=== PATIENT | female | born 1965 | race Asian ===

== ENCOUNTER 2020-12-25 09:56 | Outpatient (REF) | payer BC, SELFPAY ==
--- NOTE | ~2020-12-25 | XR_ITS ---
EXAMINATION: XR knee RT 2V, XR knee LT 2V CLINICAL INFORMATION: Reason for Exam Z00.00 - Encounter for general adult medical examination ... COMPARISON: None available at the time of this dictation. TECHNIQUE: frontal, lateral, tunnel and patella sunrise views FINDINGS: BONES: No fracture or dislocation is present. JOINTS: Joint spaces are preserved. No joint effusion. SOFT TISSUE: Normal XR/XR knee RT 2V IMPRESSION: Normal x-ray of the knees.
--- NOTE | ~2020-12-25 | XR_ITS ---
EXAMINATION: XR knee RT 2V, XR knee LT 2V CLINICAL INFORMATION: Reason for Exam Z00.00 - Encounter for general adult medical examination ... COMPARISON: None available at the time of this dictation. TECHNIQUE: frontal, lateral, tunnel and patella sunrise views FINDINGS: BONES: No fracture or dislocation is present. JOINTS: Joint spaces are preserved. No joint effusion. SOFT TISSUE: Normal XR/XR knee LT 2V IMPRESSION: Normal x-ray of the knees.
[2020-12-25 11:17] LABS: MANUAL DIFF FLAG NO
[2020-12-25 11:28] LABS: Basophils Percent Auto 0.3 % (0-2); Eosinophils Absolute Auto 0.2 X10*3/uL (0.0-0.4); Eosinophils Percent Auto 3.3 % (0-4); Hematocrit 39.2 % (37-47); Imm Gran Abs Auto 0.02 X10*3/uL (0.00-0.03); Imm Gran Pct Auto 0.3 % (0.0-0.4); Mean Corpuscular HGB Conc 33.2 g/dl (31.0-35.0); Mean Corpuscular Volume 93.6 fL (80-98); Mean Platelet Volume 11.4 fL (9.4-12.3); Monocytes Absolute Auto 0.5 X10*3/uL (0.1-1.2); Monocytes Percent Auto 7.3 % (2-11); Neutrophils Absolute Auto 4.1 X10*3/uL (2.0-8.3); Neutrophils Percent Auto 59.8 % (45-73); Platelet Count 162 X10*3/uL (160-400); Red Blood Count 4.19 X10*6/uL (4.20-5.50); Red Cell Distribution Width 12.2 % (11.0-16.0); White Blood Count 6.9 X10*3/uL (4.8-10.8)
[2020-12-25 11:47] LABS: Alanine Aminotransferase 20 U/L (0-31); Albumin Level 4.1 g/dL (3.5-5.0); Alkaline Phosphatase 69 U/L (39-117); Anion Gap 15 (12-20); Aspartate Amino Transferase 20 U/L (5-31); Bilirubin Total 0.8 mg/dL (0.0-1.0); Blood Urea Nitrogen 16 mg/dL (9-16); Calcium 9.2 mg/dL (8.4-10.2); Carbon Dioxide 25 mmol/L (22-29); Chloride 106 mmol/L (96-108); Cholesterol 219 mg/dL; Estimated Glomerular Filt Rate > 60; Glucose Random 88 mg/dL (60-115); HDL Cholesterol 49 mg/dL; LDL Cholesterol Calculated 124 mg/dl; Magnesium 2.4 mg/dL (1.6-2.6); Potassium 4.1 mmol/L (3.3-5.1); Sodium 142 mmol/L (135-145); Total Protein 7.3 g/dL (6.5-8.0); Triglycerides 234 mg/dL
[2020-12-25 12:09] LABS: Free T4 (Free Thyroxine) 0.86 ng/dL (0.71-1.85); Thyroid Stimulating Hormone 2.64 uIU/mL (0.32-4.0); Vitamin D 25-OH Total 24.4 ng/mL (>30)
[2020-12-27 08:25] LABS: HBc Num1 10.11 S/CO (0.00-0.79); HBsAGNum1 0.18 S/CO (0.00-0.99); Hepatitis B Surface Antigen Negative (Negative); ~HepC Num1 0.05 S/CO (0.00-0.79); ~Hepatitis C Antibody Nonreactive (Nonreactive)
[2020-12-27 08:31] LABS: ~Hepatitis B Surface Antibody REACTIVE (Nonreactive)
[2020-12-27 09:12] LABS: Folate 17.7 ng/mL (> or = 4.0); Vitamin B12 781 pg/mL (200-900)
[2020-12-27 10:06] LABS: HBc Num3 10.34 S/CO; Hepatitis B Core Antibody Reactive (Nonreactive)
== END 2020-12-25 09:57 | disposition home or self-care (01) ==
LOC: HO.XRAY 09:56
PROVIDERS: PCP Internal Medicine; Visit Provider Internal Medicine
DX: Z00.00 Encounter for general adult medical examination without abnormal findings (principal); M25.561 Pain in right knee; M25.562 Pain in left knee; R94.5 Abnormal results of liver function studies; E78.00 Pure hypercholesterolemia, unspecified
CPT/HCPCS: 36415; 73560; 80053; 80061; 82306; 82607; 82746; 83735; 84100; 84439; 84443; 85025; 86704; 86706; 86803; 87340

== ENCOUNTER 2021-06-08 13:22 | Outpatient (REF) | payer BC, SELFPAY | END 2021-06-08 13:23 | disposition home or self-care (01) | LOC: HO.LAB 13:22 | PROVIDERS: Visit Provider Internal Medicine | DX: Z20.822 Contact with and (suspected) exposure to COVID-19 (principal) | CPT/HCPCS: C9803; U0003; U0005 ==

== ENCOUNTER 2021-06-13 15:45 | Outpatient (REF) | payer BC, SELFPAY | END 2021-06-13 15:46 | disposition home or self-care (01) | LOC: HO.LAB 15:45 | PROVIDERS: Visit Provider Internal Medicine | DX: Z20.822 Contact with and (suspected) exposure to COVID-19 (principal) | CPT/HCPCS: C9803; U0003; U0005 ==

== ENCOUNTER 2022-01-14 09:53 | Outpatient (REF) | payer BC, SELFPAY ==
[2022-01-14 10:26] LABS: Basophils Percent Auto 0.2 % (0-2); Eosinophils Absolute Auto 0.3 X10*3/uL (0.0-0.4); Eosinophils Percent Auto 4.1 % (0-4); Hematocrit 37.8 % (37.0-47.0); Hemoglobin 12.5 g/dl (12.0-16.0); Imm Gran Abs Auto 0.02 X10*3/uL (0.00-0.03); Imm Gran Pct Auto 0.3 % (0.0-0.4); Lymphocytes Percent Auto 30.6 % (20-40); MANUAL DIFF FLAG NO; Mean Corpuscular HGB Conc 33.1 g/dl (31.0-35.0); Mean Corpuscular Hemoglobin 30.8 pg (27.0-33.0); Mean Corpuscular Volume 93.1 fL (80.0-98.0); Monocytes Absolute Auto 0.5 X10*3/uL (0.1-1.2); Monocytes Percent Auto 7.7 % (2-11); Neutrophils Absolute Auto 3.8 x10*3/uL (2.0-8.3); Neutrophils Percent Auto 57.1 % (45-73); Platelet Count 154 X10*3/uL (160-400); Red Blood Count 4.06 X10*6/uL (4.20-5.50); Red Cell Distribution Width 12.6 % (11.0-16.0); White Blood Count 6.6 X10*3/uL (4.8-10.8)
[2022-01-14 11:16] LABS: Alanine Aminotransferase 21 U/L (0-31); Albumin Level 4.3 g/dL (3.5-5.0); Alkaline Phosphatase 71 U/L (39-117); Anion Gap 12 (12-20); Aspartate Amino Transferase 19 U/L (5-31); Bilirubin Total 0.5 mg/dL (0.0-1.0); Blood Urea Nitrogen 18 mg/dL (9-16); Calcium 8.9 mg/dL (8.4-10.2); Carbon Dioxide 25 mmol/L (22-29); Chloride 108 mmol/L (96-108); Cholesterol 197 mg/dL; Estimated Glomerular Filt Rate > 60; Glucose Random 98 mg/dL (60-115); HDL Cholesterol 43 mg/dL; LDL Cholesterol Calculated 110 mg/dl; Potassium 4.3 mmol/L (3.3-5.1); Sodium 141 mmol/L (135-145); Total Protein 7.4 g/dL (6.5-8.0); Triglycerides 221 mg/dL
[2022-01-14 11:37] LABS: Free T4 (Free Thyroxine) 0.83 ng/dL (0.71-1.85); Thyroid Stimulating Hormone 2.06 uIU/mL (0.32-4.0); Vitamin D 25-OH Total 27.1 ng/mL (>30)
[2022-01-16 09:06] LABS: Folate 18.4 ng/mL (> or = 4.0); Vitamin B12 1155 pg/mL (200-900)
== END 2022-01-14 09:54 | disposition home or self-care (01) ==
LOC: HO.LAB 09:53
PROVIDERS: PCP Internal Medicine; Visit Provider Internal Medicine
DX: E78.00 Pure hypercholesterolemia, unspecified (principal)
CPT/HCPCS: 36415; 80053; 80061; 82306; 82607; 82746; 84439; 84443; 85025

== ENCOUNTER 2023-01-06 09:22 | Outpatient (REF) | payer BC, SELFPAY ==
[2023-01-06 09:31] LABS: MANUAL DIFF FLAG NO
[2023-01-06 09:39] LABS: Basophils Percent Auto 0.4 % (0-2); Eosinophils Absolute Auto 0.3 X10*3/uL (0.0-0.4); Eosinophils Percent Auto 4.1 % (0-4); Hematocrit 38.5 % (37.0-47.0); Hemoglobin 12.8 g/dl (12.0-16.0); Imm Gran Abs Auto 0.03 X10*3/uL (0.00-0.03); Imm Gran Pct Auto 0.4 % (0.0-0.4); Lymphocytes Absolute Auto 2.3 X10*3/uL (1.2-4.9); Lymphocytes Percent Auto 33.3 % (20-40); Mean Corpuscular HGB Conc 33.2 g/dl (31.0-35.0); Mean Corpuscular Hemoglobin 30.4 pg (27.0-33.0); Mean Corpuscular Volume 91.4 fL (80.0-98.0); Mean Platelet Volume 10.2 fL (9.4-12.3); Monocytes Absolute Auto 0.5 X10*3/uL (0.1-1.2); Monocytes Percent Auto 7.9 % (2-11); Neutrophils Absolute Auto 3.7 x10*3/uL (2.0-8.3); Neutrophils Percent Auto 53.9 % (45-73); Platelet Count 161 X10*3/uL (160-400); Red Blood Count 4.21 X10*6/uL (4.20-5.50); Red Cell Distribution Width 12.4 % (11.0-16.0); White Blood Count 6.9 X10*3/uL (4.8-10.8)
[2023-01-06 10:18] LABS: Alanine Aminotransferase 15 U/L (0-31); Albumin Level 4.1 g/dL (3.5-5.0); Alkaline Phosphatase 57 U/L (39-117); Anion Gap 12 (12-20); Aspartate Amino Transferase 19 U/L (5-31); Bilirubin Total 0.6 mg/dL (0.0-1.0); Blood Urea Nitrogen 19 mg/dL (9-16); Calcium 9.6 mg/dL (8.4-10.2); Carbon Dioxide 26 mmol/L (22-29); Chloride 106 mmol/L (96-108); Cholesterol 232 mg/dL; Estimated Glomerular Filt Rate > 60; Glucose Random 101 mg/dL (60-115); HDL Cholesterol 45 mg/dL; LDL Cholesterol Calculated 151 mg/dl; Potassium 4.3 mmol/L (3.3-5.1); Sodium 140 mmol/L (135-145); Total Protein 7.6 g/dL (6.5-8.0); Triglycerides 183 mg/dL
[2023-01-06 10:36] LABS: Free T4 (Free Thyroxine) 0.87 ng/dL (0.71-1.85); Thyroid Stimulating Hormone 2.69 uIU/mL (0.32-4.0); Vitamin D 25-OH Total 44.8 ng/mL (>30)
[2023-01-06 10:52] LABS: Folate 17.4 ng/mL (> or = 4.0); Vitamin B12 1647 pg/mL (200-900)
== END 2023-01-06 09:23 | disposition home or self-care (01) ==
LOC: HO.LAB 09:22
PROVIDERS: PCP Internal Medicine; Visit Provider Internal Medicine
DX: Z00.00 Encounter for general adult medical examination without abnormal findings (principal); E78.00 Pure hypercholesterolemia, unspecified; E55.9 Vitamin D deficiency, unspecified
CPT/HCPCS: 36415; 80053; 80061; 82306; 82607; 82746; 84439; 84443; 85025

== ENCOUNTER 2024-01-01 15:46 | Outpatient (AMB) | payer BC, SELFPAY ==
[2024-01-01 15:49] VITALS: BP 118/78; PULSE 78; O2SAT 98; BMI 25.1
--- NOTE | 2024-01-01 15:49 | MHC.PC.OV ---
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 Accompanied by: Self / Same As Patient Allergies penicillin V Allergy (Unknown, Verified 01/01/24 15:55) anaphylaxis Medication List - Last Reconciled 01/01/24 by Kenneth Jaeger MD cholecalciferol (vitamin D3) 25 mcg PO DAILY clotrimazole 1% 1 appl topical BID 4 weeks multivitamin (Daily Multi-Vitamin tablet) 1 tab PO DAILY Tobacco use date assessed: 01/01/24 Dental Screening Dental Screen Date: 01/01/24 Did you have a dental visit in the last 12 months?: Yes Did you have a dental problem in the last 6 months where you did not have access to dental care?: No Was dental information given to patient?: Patient has dentist HPI pe HPI Details 58-year-old female with a 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 Patient's colonoscopy was done in 2015 mammogram and MRI of the breast 12/09/2022.. 08/2023 had dizzy andwent to urgent center BP high went twice 2nd time- urgent - had vaginal bleeding- went to costume specialist was told negative- dizzy again- ear fluid was told?- but no meds [facility] Medical History (Updated 01/01/24 @ 16:17 by Kenneth Jaeger MD) Overweight (BMI 25.0-29.9) Food allergy Vitamin D deficiency Allergic rhinitis Surgical History History of section Family History (Updated 01/01/24 @ 16:27 by Kenneth Jaeger MD) Father No problems noted. Mother Atrial fibrillation Brother Hypertension Daughter Allergies Paternal Uncle Liver cancer Social History Housing: House Alcohol intake: never Patient Tobacco Use Status: Never used Tobacco e-Cigarette/Vaping Use: Never Used Second Hand Smoke Exposure: No service: No Current occupational status: employed Current occupational exposures/hazards: No Cognitive needs: No Hearing needs: No Vision needs: No Questionnaire PHQ-9 Over the last 2 weeks, how often have you been bothered by any of the following problems? 1. Little interest or pleasure in doing things: not at all 2. Feeling down, depressed, or hopeless: not at all 3. Trouble falling or staying asleep, or sleeping too much: not at all 4. Feeling tired or having little energy: not at all 5. Poor appetite or overeating: not at all 6. Feeling bad about yourself - or that you are a failure or have let yourself or your family down: not at all 7. Trouble concentrating on things, such as reading the newspaper or watching television: not at all 8. Moving or speaking so slowly that other people could have noticed. Or the opposite - being so fidgety or restless that you have been moving around a lot more than usual: not at all 9. Thoughts that you would be better off or of hurting yourself in some way: not at all Total score: 0 Depression Screening Interpretation: Negative Depression Screening Done: Yes Source: Developed by Drs. Paco Krishna, Ely Rockwell, Darrel Ruiz and colleagues, with an educational micky from [employer]. Thrive Questionnaire Date Thrive assessed: 01/01/24 I am a: Patient What is your living situation today?: I have a steady place to live Within the past 12 months, did the food you bought not last and you didn't have the money to get more?: Never true Within the past 12 months, did you worry whether your food would run out before you got money to buy more?: Never true Do you have trouble paying for medicines?: No Do you have trouble getting transportation to medical appointments?: No Do you have trouble paying your heating and electricity bill?: No Do you have trouble taking care of your child, family member or friend?: No Do you have trouble with day-to-day activities such as bathing, preparing meals, shopping, managing finances, etc.?: No Are you currently unemployed and looking for a job?: No Are you interested in more education?: No Currently or been in a relationship where the following occur: no concerns reported THRIVE Score: 0 AUDIT C Alcohol Use Questionnaire (AUDIT-C) 1. How often do you have a drink containing alcohol?: Never Total Score: 0 PATI-7 AMB Questionnaire PATI-7 Date PATI - 7 assessed: 01/01/24 Feeling nervous, anxious, or on edge: 0 = Not at all Not being able to stop or control worryin = Not at all Worrying too much about different things: 0 = Not at all Trouble relaxin = Not at all Being so restless that it is hard to sit still: 0 = Not at all Becoming easily annoyed or irritable: 0 = Not at all Feeling afraid as if something awful might happen: 0 = Not at all Total PATI-7 score (0-4 normal; 5-9 mild; 10-14 moderate; 15-21 severe): 0 Source: Developed by Drs. Paco Krishna, Ely Rockwell, Darrel Ruiz and colleagues, with an educational micky from [employer]. Review of Systems Const Denies poor appetite and Denies weakness Eyes Denies no additional complaints ENT Reports Normal hearing present, Denies dizziness, Denies nasal congestion, Denies tinnitus and Denies sore throat Card Denies chest pain, Denies syncope, Denies rapid heart rate and Denies dyspnea Resp Denies cough and Denies dyspnea GI Denies change in stool character, Reports constipation, Denies diarrhea, Denies nausea and Denies vomiting Denies urinary frequency, Denies difficulty voiding and Denies dysuria Neuro Reports Normal hearing present, Denies confusion, Denies dizziness, Denies syncope and Denies weakness Psych Denies confusion Physical exam (Primary Care) Vital Signs: Last Vital Signs Pulse 78 01/01/24 15:49 BP 118/78 01/01/24 15:49 Pulse Ox 98 01/01/24 15:49 Oxygen Delivery Method Room Air 01/01/24 15:49 BMI result Body Mass Index 25.1 Tobacco/Smoking Status: Tobacco use Status Tobacco use date assessed 01/01/24 01/01/24 15:59 Patient Tobacco Use Status Never used Tobacco 01/01/24 15:59 e-Cigarette/Vaping Use Never Used 01/01/24 15:59 PHQ-9: PHQ-9 Score PHQ-9: Total score 0 01/01/24 15:59 Depression Screening Interpretation: Negative Thrive Assessment: Date of Thrive Assessment Date Thrive assessed 01/01/24 01/01/24 15:59 Currently or been in a relationship where the following occur: no concerns reported Const General: No confusion Orientation/consciousness: No confusion HENMT Head: Yes normocephalic Ears: external ears normal and TM's normal bilaterally Face and sinus: Yes normal facial exam Mouth: moist mucous membranes Throat: Yes tonsils normal Eyes Conjunctivae: conjunctivae normal Pupils: Equal, round and reactive pupils present and Pupil accommodation reflex normal Direct Ophthalmoscopy: normal light reflex Neck Neck: No lymphadenopathy Thyroid: Thyroid normal Chest Chest palpation & inspection: normal inspection of the chest Resp Effort & Inspection: normal respiratory effort and no audible wheezes Auscultation: clear to auscultation bilaterally, no crackles, no wheezes and lung sounds not diminished Cardio Rate: regular rate Rhythm: regular rhythm Peripheral pulses: radial pulses present and dorsalis pedis present GI Palpation (GI): no masses Auscultation: normal bowel sounds and normoactive bowel sounds Rectal Exam - Female: deferred Skin General skin exam: no rashes or lesions noted Rashes: no rashes Neuro General: No confusion Cranial nerves: Yes Equal, round and reactive pupils present and Yes Normal hearing present Cognition (Neuro): normal cognition Gait exam (Neuro): Normal gait present Motor exam (neuro): 5/5 motor strength present throughout Deep tendon reflexes (DTR's): Right brachioradialis reflex intensity grade: 2+, Left brachioradialis reflex intensity grade: 2+, Right patellar reflex intensity grade: 2+ and Left patellar reflex intensity grade: 2+ Extrem General: No edema Assessment and Plan Assessment & Plan (1) Annual physical exam: Code(s): Z00.00 - Encounter for general adult medical examination without abnormal findings Plan: Patient is advised to eat healthy, keep well hydrated, keep active and have adequate sleep. (2) Atypical ductal hyperplasia of right breast: Comment: 2019 Code(s): N60.91 - Unspecified benign mammary dysplasia of right breast Plan: Patient continues to follow-up with mammograms and MRI (3) Hypercholesterolemia: Code(s): E78.00 - Pure hypercholesterolemia, unspecified Plan: Avoid fried foods, chicken skin, eggs, butter margarine, pastries and meat. Be it pork or beef they have a lot of cholesterol LDL goal of less than 130 and triglyceride of less than 150 (4) Impaired glucose tolerance: Code(s): R73.02 - Impaired glucose tolerance (oral) Plan: Decrease the amount of carbohydrate intake, pasta, bread, rice and potatoes are all sugar and that is aside from all the sweet stuff, remember that fruits are good but they are Sweet also. Orders: Orders Free T4 (Free Thyroxine) Today Z00.00 - Encounter for general adult medical examination without abnormal findings Thyroid Stimulating Hormone Today Z00.00 - Encounter for general adult medical examination without abnormal findings Lipid Panel Today Z00.00 - Encounter for general adult medical examination without abnormal findings Hemoglobin A1c Today Z00.00 - Encounter for general adult medical examination without abnormal findings Complete Blood Count Auto Diff Today Z00.00 - Encounter for general adult medical examination without abnormal findings Comprehensive Met. Panel Today Z00.00 - Encounter for general adult medical examination without abnormal findings Vitamin B12 and Folate Today Z00.00 - Encounter for general adult medical examination without abnormal findings Vitamin D 25-OH Total Today Z00.00 - Encounter for general adult medical examination without abnormal findings Coding Level of Care Code Est Pt Prev Care 40-64y(10433) Diagnoses Annual physical exam Z00.00 Atypical ductal hyperplasia of right breast N60.91 Hypercholesterolemia E78.00 Impaired glucose tolerance R73.02
== END 2024-01-01 16:51 | disposition home or self-care (01) ==
PROVIDERS: PCP Internal Medicine; Visit Provider Internal Medicine
DX: Z00.00 Encounter for general adult medical examination without abnormal findings (principal); N60.91 Unspecified benign mammary dysplasia of right breast; E78.00 Pure hypercholesterolemia, unspecified; R73.02 Impaired glucose tolerance (oral)
CPT/HCPCS: 99396

== ENCOUNTER 2024-04-11 10:56 | Outpatient (REF) | payer BC, SELFPAY ==
[2024-04-11 11:11] LABS: MANUAL DIFF FLAG NO
[2024-04-11 11:42] LABS: Basophils Percent Auto 0.3 % (0-2); Eosinophils Absolute Auto 0.2 X10*3/uL (0.0-0.4); Hematocrit 39.1 % (37.0-47.0); Hemoglobin 13.1 g/dl (12.0-16.0); Imm Gran Abs Auto 0.02 X10*3/uL (0.00-0.03); Imm Gran Pct Auto 0.3 % (0.0-0.4); Lymphocytes Absolute Auto 1.6 X10*3/uL (1.2-4.9); Lymphocytes Percent Auto 26.5 % (20-40); Mean Corpuscular HGB Conc 33.5 g/dl (31.0-35.0); Mean Corpuscular Hemoglobin 31.3 pg (27.0-33.0); Mean Corpuscular Volume 93.3 fL (80.0-98.0); Mean Platelet Volume 11.1 fL (9.4-12.3); Monocytes Absolute Auto 0.5 X10*3/uL (0.1-1.2); Monocytes Percent Auto 8.4 % (2-11); Neutrophils Absolute Auto 3.7 x10*3/uL (2.0-8.3); Neutrophils Percent Auto 61.5 % (45-73); Platelet Count 163 X10*3/uL (160-400); Red Blood Count 4.19 X10*6/uL (4.20-5.50); Red Cell Distribution Width 12.6 % (11.0-16.0)
[2024-04-11 12:14] LABS: Estimated Average Glucose 114 mg/dL; Hemoglobin A1c % 5.6 % (<6.0)
[2024-04-11 12:36] LABS: Alanine Aminotransferase 24 U/L (0-31); Albumin Level 4.2 g/dL (3.5-5.0); Alkaline Phosphatase 64 U/L (39-117); Anion Gap 10 (12-20); Aspartate Amino Transferase 21 U/L (5-31); Bilirubin Total 0.7 mg/dL (0.0-1.0); Blood Urea Nitrogen 19 mg/dL (9-16); Calcium 9.5 mg/dL (8.4-10.2); Carbon Dioxide 29 mmol/L (22-29); Chloride 107 mmol/L (96-108); Cholesterol 204 mg/dL (<200); Estimated Glomerular Filt Rate > 60; Glucose Random 97 mg/dL (60-115); HDL Cholesterol 43 mg/dL (>40); LDL Cholesterol Calculated 124 mg/dL (<100); Potassium 3.9 mmol/L (3.3-5.1); Sodium 142 mmol/L (135-145); Total Protein 7.5 g/dL (6.5-8.0); Triglycerides 185 mg/dL (<150)
[2024-04-11 12:44] LABS: Free T4 (Free Thyroxine) 0.89 ng/dL (0.71-1.85); Thyroid Stimulating Hormone 2.13 uIU/mL (0.32-4.0); Vitamin D 25-OH Total 43.2 ng/mL (>30)
[2024-04-11 12:53] LABS: Vitamin B12 1137 pg/mL (200-900)
== END 2024-04-11 10:57 | disposition home or self-care (01) ==
LOC: HO.LAB 10:56
PROVIDERS: PCP Internal Medicine; Visit Provider Internal Medicine
DX: Z00.00 Encounter for general adult medical examination without abnormal findings (principal); Z20.2 Contact with and (suspected) exposure to infections with a predominantly sexual mode of transmission
CPT/HCPCS: 36415; 80053; 80061; 82306; 82607; 82746; 83036; 84439; 84443; 85025

== ENCOUNTER 2024-07-18 14:12 | Outpatient (AMB) | payer BC, SELFPAY ==
--- NOTE | 2024-07-18 14:17 | A.OFFPC_ITS ---
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 The patient's history includes an epidermal inclusion cyst, initially noticed last year, for which she was previously referred to a office clerk routine. She did not attend the consult but reports that the cyst has recently increased in size, exhibited pain, and appears different. The use of a warm pad has been partially effective in symptom management. The patient has a history of similar cysts, one previously treated by dermatological surgery. A concern is expressed regarding scarring from such procedures; she is considering a referral to a general surgeon or plastic surgeon for evaluation. The patient has a history of hyperlipidemia, which was previously uncontrolled with a total cholesterol of 232, now improved to 204 following unspecified interventions. LDL cholesterol has decreased from 151 to 124, although triglycerides remain elevated at 185. The patient's previous blood sugar level was 101, with current fasting blood glucose improved to 97, and hemoglobin A1c noted at 5.6%, reflecting good glycemic control. She reported ringing in her ears for a prolonged period, suggestive of presbycusis. No noticeable decline in daily function was associated with tinnitus. Hypertension is controlled, but the patient declined further evaluation for dysphagia despite occasional symptoms. She remains unvaccinated against influenza due to self-isolation by working from home but is considering vaccination with upcoming volunteer activities. An interest in a shingles vaccine was noted for future preventative care. [facility] Medical History (Updated 07/18/24 @ 15:01 by Kenneth Jaeger MD) Overweight (BMI 25.0-29.9) Food allergy Vitamin D deficiency Allergic rhinitis Surgical History History of section Family History Father No problems noted. Mother Atrial fibrillation Brother Hypertension Daughter Allergies Paternal Uncle Liver cancer Social History Housing: House Alcohol intake: never Patient Tobacco Use Status: Never used Tobacco e-Cigarette/Vaping Use: Never Used Second Hand Smoke Exposure: No service: No Current occupational status: employed Current occupational exposures/hazards: No Cognitive needs: No Hearing needs: No Vision needs: No Questionnaire PHQ-9 Over the last 2 weeks, how often have you been bothered by any of the following problems? 1. Little interest or pleasure in doing things: not at all 2. Feeling down, depressed, or hopeless: not at all 3. Trouble falling or staying asleep, or sleeping too much: not at all 4. Feeling tired or having little energy: not at all 5. Poor appetite or overeating: not at all 6. Feeling bad about yourself - or that you are a failure or have let yourself or your family down: not at all 7. Trouble concentrating on things, such as reading the newspaper or watching television: not at all 8. Moving or speaking so slowly that other people could have noticed. Or the opposite - being so fidgety or restless that you have been moving around a lot more than usual: not at all 9. Thoughts that you would be better off or of hurting yourself in some way: not at all Total score: 0 Depression Screening Interpretation: Negative Depression Screening Done: Yes 52913 - PHQ-9 Billing: Yes Source: Developed by Drs. Paco Krishna, Ely Rockwell, Darrel Ruiz and colleagues, with an educational micky from [employer]. Thrive Questionnaire Date Thrive assessed: 07/18/24 I am a: Patient What is your living situation today?: I have a steady place to live Within the past 12 months, did the food you bought not last and you didn't have the money to get more?: Never true Within the past 12 months, did you worry whether your food would run out before you got money to buy more?: Never true Do you have trouble paying for medicines?: No Do you have trouble getting transportation to medical appointments?: No Do you have trouble paying your heating and electricity bill?: No Do you have trouble taking care of your child, family member or friend?: No Do you have trouble with day-to-day activities such as bathing, preparing meals, shopping, managing finances, etc.?: No Are you currently unemployed and looking for a job?: No Are you interested in more education?: No Currently or been in a relationship where the following occur: No concerns reported THRIVE Score: 0 AUDIT C Alcohol Use Questionnaire (AUDIT-C) 1. How often do you have a drink containing alcohol?: Never 3. How often do you have six or more drinks on one occasion?: Never Total Score: 0 PATI-7 AMB Questionnaire PATI-7 Date PATI - 7 assessed: 07/18/24 Feeling nervous, anxious, or on edge: 0 = Not at all Not being able to stop or control worryin = Not at all Worrying too much about different things: 0 = Not at all Trouble relaxin = Not at all Being so restless that it is hard to sit still: 0 = Not at all Becoming easily annoyed or irritable: 0 = Not at all Feeling afraid as if something awful might happen: 0 = Not at all Total PATI-7 score (0-4 normal; 5-9 mild; 10-14 moderate; 15-21 severe): 0 Source: Developed by Drs. Paco Krishna, Ely Rockwell, Darrel Ruiz and colleagues, with an educational micky from [employer]. PATI-7 Assessment Billing PATI-7 Assessment Tool: PATI-7 Assessment 55976 Physical exam (Primary Care) Vital Signs: Last Vital Signs Pulse 69 07/18/24 14:39 BP 110/70 07/18/24 14:39 Pulse Ox 96 07/18/24 14:39 Oxygen Delivery Method Room Air 07/18/24 14:39 BMI result Body Mass Index 26.0 Tobacco/Smoking Status: Tobacco use Status Tobacco use date assessed 01/01/24 07/18/24 14:18 Patient Tobacco Use Status Never used Tobacco 07/18/24 14:18 e-Cigarette/Vaping Use Never Used 07/18/24 14:18 PHQ-9: PHQ-9 Score PHQ-9: Total score 0 07/18/24 14:18 Depression Screening Interpretation: Negative Thrive Assessment: Date of Thrive Assessment Date Thrive assessed 07/18/24 07/18/24 14:18 Currently or been in a relationship where the following occur: No concerns reported Const General: alert; No acute distress Eyes Conjunctivae: conjunctivae normal Resp Auscultation: clear to auscultation bilaterally Cardio Rate: regular rate Rhythm: regular rhythm GI Inspection: Yes normal to inspection Back/Spine/Pelvis Back/spine/pelvis image: 2 1. 1 cm epidermal inclusion cyst Extrem General: Yes normal to inspection and No edema Office Procedures Flu Questionnaire Does the patient have a severe egg allergy?: No Immunizations Fluarix Triv [id number] (PF) 45 mcg (15 mcg x 3)/0.5 mL IM syringe Performing Provider: Kenneth Jaeger MD [place] [facility] [place] [facility] Documented (not given) by: MARCOS Tompkins on 07/18/24 14:39 Reason Not Given: Patient Refused Coding Level of Care Code Est Pt Level 4 (62435) Complex EM visit Add On G2211 Diagnoses Overweight (BMI 25.0-29.9) E66.3 Atypical ductal hyperplasia of right breast N60.91 Hypercholesterolemia E78.00 Epidermal inclusion cyst L72.0 Dysphagia R13.10 Tinnitus H93.19 Peripheral vascular disease I73.9 Additional Codes PATI-7 Assessment Billing - PATI-7 Assessment Tool: PATI-7 Assessment 03923 ([id number]) PHQ-9 - 00907 - PHQ-9 Billing: Yes ([id number]) Assessment & Plan Assessment & Plan (1) Overweight (BMI 25.0-29.9): Code(s): E66.3 - Overweight Category: Medical (2) Atypical ductal hyperplasia of right breast: Comment: 2019 testing Code(s): N60.91 - Unspecified benign mammary dysplasia of right breast Category: Medical Plan: Patient goes to [place] for MRIs and mammogram (3) Hypercholesterolemia: Code(s): E78.00 - Pure hypercholesterolemia, unspecified Category: Medical Plan: Avoid fried foods, chicken skin, eggs, butter margarine, pastries and meat. Be it pork or beef they have a lot of cholesterol LDL goal of less than 130 and triglyceride of less than 150. (4) Epidermal inclusion cyst: Comment: mid back Code(s): L72.0 - Epidermal cyst Category: Medical Plan: Referral to the surgeon done (5) Dysphagia: Code(s): R13.10 - Dysphagia, unspecified Category: Medical Plan: Discussed about eating slower and cutting the food smaller and chewing properly. If continues to persist will have to do testing (6) Tinnitus: Code(s): H93.19 - Tinnitus, unspecified ear Category: Medical Plan: Discussed about hearing loss but patient is not ready to get testing. (7) Peripheral vascular disease: Code(s): I73.9 - Peripheral vascular disease, unspecified Category: Medical Plan: When sitting down elevate the legs, exercise, and support stockings Plan - Advise plastic surgery consultation for a potentially less invasive excision of the epidermal inclusion cyst with focus on minimizing scarring. - Continue monitoring lipid levels; reinforce dietary interventions to manage hyperlipidemia. Re-evaluate lipid panel in conjunction with patient's dietary adjustments. - No additional workup for tinnitus needed at this time; patient to consider audiometry should symptoms worsen. - Reinforce lifestyle measures for maintenance of normal glycemic range given satisfactory A1c levels and normal fasting glucose. - Continue monitoring hypertension, ensure compliance with current antihypertensive regimen. - Recommend appropriate adult vaccinations, including influenza and shingles vaccines, particularly if pursuing volunteer work. - Educate on dietary modifications to alleviate dysphagia symptoms, return for evaluation if symptoms persist or worsen. - Discuss benefits of hearing test if significant progression in tinnitus or associated hearing changes. - Encourage proactive management of venous insufficiency symptoms, including lifestyle modifications. - Continue considering mental health and social engagement for improved well- being. Orders: Orders 2 Influenza [id number] Immunization Today Z23 - Encounter for immunization Referrals 2 General Surgery Referral L72.0 - Epidermal cyst
[2024-07-18 14:39] VITALS: BP 110/70; PULSE 69; O2SAT 96; BMI 26.0
== END 2024-07-18 15:02 | disposition home or self-care (01) ==
PROVIDERS: PCP Internal Medicine; Visit Provider Internal Medicine
DX: I73.9 Peripheral vascular disease, unspecified (principal); E66.3 Overweight; N60.91 Unspecified benign mammary dysplasia of right breast; E78.00 Pure hypercholesterolemia, unspecified; L72.0 Epidermal cyst; R13.10 Dysphagia, unspecified

== ENCOUNTER → 2024-07-18 14:12 | Outpatient (BNVA) | payer BC, SELFPAY | PROVIDERS: PCP Internal Medicine; Visit Provider Internal Medicine | DX: E66.3 Overweight (principal); Z68.26 Body mass index [BMI] 26.0-26.9, adult; N60.91 Unspecified benign mammary dysplasia of right breast; E78.00 Pure hypercholesterolemia, unspecified; L72.0 Epidermal cyst; R13.10 Dysphagia, unspecified; H93.19 Tinnitus, unspecified ear; I73.9 Peripheral vascular disease, unspecified; Z28.21 Immunization not carried out because of patient refusal | CPT/HCPCS: 96127 ==

== ENCOUNTER 2025-01-02 16:12 | Outpatient (AMB) | payer BC, SELFPAY ==
--- OUTSIDE RECORDS SUMMARY | 2025-01-02 16:14 | XMS_ITS ---
Author Name [facility] Organization Unknown Encounters Encounter Type Encounter Reason Primary Diagnosis Location Date Ambulatory [facility] [place] 04/24/2023 Ambulatory [facility] [place] 03/23/2023 Ambulatory [facility] [place] 03/20/2023 Ambulatory [facility] [place] 02/12/2023 Ambulatory [facility] [place] 02/12/2023 Ambulatory [facility] [place] 02/12/2023 Ambulatory [facility] [place] 02/08/2023 Ambulatory [facility] [place] 01/15/2023 Ambulatory [facility] [place] 01/15/2023 Ambulatory [facility] [place] 01/15/2023 Ambulatory [facility] [place] 01/15/2023
[2025-01-02 16:30] VITALS: BP 130/80; PULSE 81; TEMP 36.3; O2SAT 96; BMI 26.5
--- NOTE | 2025-01-02 16:30 | MHC.PC.OV ---
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: No Accompanied by: Self / Same As Patient Allergies penicillin V Allergy (Unknown, Verified 01/02/25 16:32) anaphylaxis Medication List - Last Reconciled 01/02/25 by Kenneth Jaeger MD cholecalciferol (vitamin D3) 25 mcg PO DAILY Tobacco use date assessed: 01/02/25 Dental Screening Dental Screen Date: 01/02/25 Did you have a dental visit in the last 12 months?: Yes Did you have a dental problem in the last 6 months where you did not have access to dental care?: No Was dental information given to patient?: Patient has dentist HPI Annual Exam HPI Details tip of tongue numb , 1 month concern onbrain cancer but was reassurance , tinnitus, leg swelling- discussed about PVD, states occ hot flashes, joint pain back cyst is getting better [facility] Medical History (Updated 07/18/24 @ 15:01 by Kenneth Jaeger MD) Overweight (BMI 25.0-29.9) Food allergy Vitamin D deficiency Allergic rhinitis Surgical History History of section Family History Father No problems noted. Mother Atrial fibrillation Brother Hypertension Daughter Allergies Paternal Uncle Liver cancer Social History Housing: House Alcohol intake: never Patient Tobacco Use Status: Never used Tobacco e-Cigarette/Vaping Use: Never Used Second Hand Smoke Exposure: No service: No Current occupational status: employed Current occupational exposures/hazards: No Cognitive needs: No Hearing needs: No Vision needs: No Questionnaire PHQ-9 Over the last 2 weeks, how often have you been bothered by any of the following problems? 1. Little interest or pleasure in doing things: not at all 2. Feeling down, depressed, or hopeless: not at all 3. Trouble falling or staying asleep, or sleeping too much: several days 4. Feeling tired or having little energy: several days 5. Poor appetite or overeating: not at all 6. Feeling bad about yourself - or that you are a failure or have let yourself or your family down: not at all 7. Trouble concentrating on things, such as reading the newspaper or watching television: not at all 8. Moving or speaking so slowly that other people could have noticed. Or the opposite - being so fidgety or restless that you have been moving around a lot more than usual: not at all 9. Thoughts that you would be better off or of hurting yourself in some way: not at all Total score: 2 82209 - PHQ-9 Billing: Yes Source: Developed by Drs. Paco Krishna, Ely Rockwell, Darrel Ruiz and colleagues, with an educational micky from [employer]. Thrive Questionnaire Date Thrive assessed: 01/02/25 I am a: Patient What is your living situation today?: I have a steady place to live Within the past 12 months, did the food you bought not last and you didn't have the money to get more?: Never true Within the past 12 months, did you worry whether your food would run out before you got money to buy more?: Never true Do you have trouble paying for medicines?: No Do you have trouble getting transportation to medical appointments?: No Do you have trouble paying your heating and electricity bill?: No Do you have trouble taking care of your child, family member or friend?: No Do you have trouble with day-to-day activities such as bathing, preparing meals, shopping, managing finances, etc.?: No Are you currently unemployed and looking for a job?: No Are you interested in more education?: No Please select the resources that you would like help with: None Currently or been in a relationship where the following occur: No concerns reported THRIVE Score: 0 AUDIT C Alcohol Use Questionnaire (AUDIT-C) 1. How often do you have a drink containing alcohol?: Never 3. How often do you have six or more drinks on one occasion?: Never Total Score: 0 PATI-7 AMB Questionnaire PATI-7 Date PATI - 7 assessed: 01/02/25 Feeling nervous, anxious, or on edge: 0 = Not at all Not being able to stop or control worryin = Not at all Worrying too much about different things: 0 = Not at all Trouble relaxin = Not at all Being so restless that it is hard to sit still: 0 = Not at all Becoming easily annoyed or irritable: 0 = Not at all Feeling afraid as if something awful might happen: 0 = Not at all Total PATI-7 score (0-4 normal; 5-9 mild; 10-14 moderate; 15-21 severe): 0 Source: Developed by Drs. Paco Krishna, Ely Rockwell, Darrel Ruiz and colleagues, with an educational micky from [employer]. PATI-7 Assessment Billing PATI-7 Assessment Tool: PATI-7 Assessment 10661 Review of Systems Const Denies poor appetite and Denies weakness Eyes Denies no additional complaints ENT Reports Normal hearing present, Denies dizziness, Denies nasal congestion, Denies tinnitus and Denies sore throat Card Denies chest pain, Denies syncope, Denies rapid heart rate and Denies dyspnea Resp Denies cough and Denies dyspnea GI Denies change in stool character, Reports constipation, Denies diarrhea, Denies nausea and Denies vomiting Denies urinary frequency, Denies difficulty voiding and Denies dysuria Neuro Reports Normal hearing present, Denies confusion, Denies dizziness, Denies syncope and Denies weakness Psych Denies confusion Physical exam (Primary Care) Vital Signs: Last Vital Signs Temp 97.3 F 01/02/25 16:30 Pulse 81 01/02/25 16:30 BP 130/80 01/02/25 16:30 Pulse Ox 96 01/02/25 16:30 Oxygen Delivery Method Room Air 01/02/25 16:30 BMI result Body Mass Index 26.5 Tobacco/Smoking Status: Tobacco use Status Tobacco use date assessed 01/02/25 01/02/25 16:33 Patient Tobacco Use Status Never used Tobacco 01/02/25 16:33 e-Cigarette/Vaping Use Never Used 01/02/25 16:33 PHQ-9: PHQ-9 Score PHQ-9: Total score 2 01/02/25 17:22 Thrive Assessment: Date of Thrive Assessment Date Thrive assessed 01/02/25 01/02/25 16:33 Currently or been in a relationship where the following occur: No concerns reported Const General: No confusion Orientation/consciousness: No confusion HENMT Head: Yes normocephalic Ears: external ears normal and TM's normal bilaterally Face and sinus: Yes normal facial exam Mouth: moist mucous membranes Throat: Yes tonsils normal Eyes Conjunctivae: conjunctivae normal Pupils: Equal, round and reactive pupils present and Pupil accommodation reflex normal Direct Ophthalmoscopy: normal light reflex Neck Neck: No lymphadenopathy Thyroid: Thyroid normal Chest Chest palpation & inspection: normal inspection of the chest Resp Effort & Inspection: normal respiratory effort and no audible wheezes Auscultation: clear to auscultation bilaterally, no crackles, no wheezes and lung sounds not diminished Cardio Rate: regular rate Rhythm: regular rhythm Peripheral pulses: radial pulses present and dorsalis pedis present GI Palpation (GI): no masses Auscultation: normal bowel sounds and normoactive bowel sounds Rectal Exam - Female: deferred Skin General skin exam: no rashes or lesions noted Rashes: no rashes Neuro General: No confusion Cranial nerves: Yes Equal, round and reactive pupils present and Yes Normal hearing present Cognition (Neuro): normal cognition Gait exam (Neuro): Normal gait present Motor exam (neuro): 5/5 motor strength present throughout Deep tendon reflexes (DTR's): Right brachioradialis reflex intensity grade: 2+, Left brachioradialis reflex intensity grade: 2+, Right patellar reflex intensity grade: 2+ and Left patellar reflex intensity grade: 2+ Extrem General: No edema Immunizations Tenivac (PF) 5 Lf unit-2 Lf unit/0.5 mL intramuscular syringe Performing Provider: Kenneth Jaeger MD [facility] Administered by: Sara Marques CMA on 01/02/25 17:24 Dose Route Admin Location Dispensed Lot Number Expiration Date NDC Typing Bookkeeper 0.5 mL IM Left Deltoid 0.5 mL [id number] 10/20/26 01691-231-75 [employer] VIS Given Date VIS Provided VIS Publication Date 01/02/25 Single Vaccine 21 Eligibility Eligibility Date Funding Source Not [facility] Eligible 01/02/25 Private Coding Level of Care Code Est Pt Prev Care 40-64y(37650) Diagnoses Annual physical exam Z00.00 Atypical ductal hyperplasia of right breast N60.91 Hypercholesterolemia E78.00 Additional Codes PATI-7 Assessment Billing - PATI-7 Assessment Tool: PATI-7 Assessment 94365 ([id number]) PHQ-9 - 90702 - PHQ-9 Billing: Yes ([id number]) Assessment & Plan Assessment & Plan (1) Annual physical exam: Code(s): Z00.00 - Encounter for general adult medical examination without abnormal findings Category: Medical Plan: Patient is advised to eat healthy, keep well hydrated, keep active and have adequate sleep. (2) Atypical ductal hyperplasia of right breast: Comment: 2019 [place] testing Code(s): N60.91 - Unspecified benign mammary dysplasia of right breast Category: Medical Plan: Patient continues to follow-up in [place] for alternating MRI and mammogram (3) Hypercholesterolemia: Code(s): E78.00 - Pure hypercholesterolemia, unspecified Category: Medical Plan: Avoid fried foods, chicken skin, eggs, butter margarine, pastries and meat. Be it pork or beef they have a lot of cholesterol LDL goal of less than 130 and triglyceride of less than 150 Plan History of Present Illness The patient is a 59-year-old female presenting with a physical exam. She has a history of hypercholesterolemia and atypical ductal hyperplasia diagnosed in 2019. The patient also has impaired glucose tolerance and peripheral vascular disease. Her last blood work in March 2024 showed normal blood count, electrolytes, renal function, and blood sugar, but elevated triglycerides at 185 mg/dL. She underwent a colonoscopy in 2015 and continues to follow up with alternating MRI and mammogram screenings in [place], with the last mammogram in August 2024. Health Maintenance - Colonoscopy last performed in 2015 - Mammogram last performed in August 2024 - Alternating MRI and mammogram screenings in [place] Social History Review of Systems Physical Exam General: Cooperative, healthy appearing, comfortable, no acute distress and well developed Orientation: Patient oriented x3 Limitations: No limitations Head: Normal to inspection Ears: Hearing grossly normal bilaterally Nose: Normal external nose present Face and sinus: Normal facial exam Eyes: Appearance normal, both eyes and all related structures Neck: Normal visual inspection and Yes full ROM Respiratory: Normal respiratory effort and able to speak in complete sentences. Clear to auscultation bilaterally Cardiovascular: Regular rate and rhythm. Normal S1 and S2 GI: Normal to inspection. Soft to palpation and nontender Skin: No rashes or lesions noted Neuro: Patient oriented x3 Extremities: Normal to inspection Results - Labs: Normal blood count, electrolytes, renal function, and blood sugar; elevated triglycerides at 185 mg/dL (March 2024) Plan The patient will continue with regular follow-ups for her hypercholesterolemia, aiming for an LDL goal of less than 130 mg/dL and triglycerides less than 150 mg/dL. She will maintain her current schedule of alternating MRI and mammogram screenings in [place]. Patient was informed and verbally consented to the use of an ambient scribe for clinic note documentation during this visit. Discussion Notes Patient Instructions Orders: Orders Thyroid Stimulating Hormone 3 Months E78.00 - Pure hypercholesterolemia, unspecified Vitamin B12 and Folate 3 Months E78.00 - Pure hypercholesterolemia, unspecified Rubella IgG Antibody 3 Months E78.00 - Pure hypercholesterolemia, unspecified, Z02.0 - Encounter for examination for admission to [facility] Rubeola IgG (Measles) 3 Months E78.00 - Pure hypercholesterolemia, unspecified, Z02.0 - Encounter for examination for admission to [facility] Mumps Virus IgG Antibody 3 Months E78.00 - Pure hypercholesterolemia, unspecified, Z02.0 - Encounter for examination for admission to [facility] Td Immunization Today Z23 - Encounter for immunization Complete Blood Count Auto Diff 3 Months E78.00 - Pure hypercholesterolemia, unspecified Comprehensive Met. Panel 3 Months E78.00 - Pure hypercholesterolemia, unspecified Free T4 (Free Thyroxine) 3 Months E78.00 - Pure hypercholesterolemia, unspecified Lipid Panel 3 Months E78.00 - Pure hypercholesterolemia, unspecified Vitamin D 25-OH Total 3 Months E78.00 - Pure hypercholesterolemia, unspecified Hemoglobin A1c 3 Months E78.00 - Pure hypercholesterolemia, unspecified Varicella IgG Antibody 3 Months E78.00 - Pure hypercholesterolemia, unspecified, Z02.0 - Encounter for examination for admission to [facility]
== END 2025-01-02 17:13 | disposition home or self-care (01) ==
LOC: HO.HMCH 16:13
PROVIDERS: PCP Internal Medicine; Visit Provider Internal Medicine
DX: Z00.00 Encounter for general adult medical examination without abnormal findings (principal); N60.91 Unspecified benign mammary dysplasia of right breast; E78.00 Pure hypercholesterolemia, unspecified; Z23 Encounter for immunization

== ENCOUNTER → 2025-01-02 16:12 | Outpatient (BNVA) | payer BC, SELFPAY | PROVIDERS: PCP Internal Medicine; Visit Provider Internal Medicine | DX: Z00.00 Encounter for general adult medical examination without abnormal findings (principal); N60.91 Unspecified benign mammary dysplasia of right breast; E78.00 Pure hypercholesterolemia, unspecified; I73.9 Peripheral vascular disease, unspecified; Z23 Encounter for immunization | CPT/HCPCS: 90471; 90714; 96127 ==

== ENCOUNTER 2025-04-20 07:33 | Outpatient (REF) | payer BC, SELFPAY ==
--- OUTSIDE RECORDS SUMMARY | 2012-11-16 | XMS_ITS | Encounter Summary ---
Author Organization [facility] Address [address] [place] [phone] Phone Care Team Providers Care Oil Winterizer Name Role Phone Unavailable Primary Care Provider Unavailabl e Encounter Details Date Type Department Care Team (Late st Contact Info) Description 11/16/2012 Hospital Encounter [facility] [address] [place] [address] Gloria Torres MD, MS [address] [place] [address] [place] [address] [phone] [email or web address] Social History Tobacco Use Types Packs/Day Years Used Date Smoking Tobacco: Never Smokeless Tobacco: Never Alcohol Use Standard Drinks/Week Comments No 0 (1 standard drink = 0.6 oz pur e alcohol) Education Answer Date Recorded Are you interested in more education? Not on yoli e 11/17/2022 Are you concerned about learning? Not on file 11/17/2022 No 11/17/2022 No 11/17/2022 Digital Access Answer Date Recorded No 12/16/2022 No 12/16/2022 Reliable internet access at home? Not on file 12/16/2022 Device with a working camera? Not on file Comments No Sex and Gender Information Value Date Recorded Sex Assigned at Female 03/22/2018 3:32 PM EDT Legal Sex Female 3:19 PM EDT Gender Identity Female 03/22/2018 3:32 PM EDT Sexual Orientation Straight 05/27/2020 10 :30 AM EST documented as of this encounter Plan of Treatment Upcoming Encounters Date Type Department Care Team (Late st Contact Info) Description 05/28/2025 1:30 PM EST Office Visit [facility] Otolaryngology General [address] [place] [address] Angel Michel MD [address] [place] [address] [email or web address] 09/10/2025 3:00 PM EST Evaluation [facility] [address] [place] [address] James Montaño AuD [address] [place] [address] [email or web address] documented as of this encounter Procedures Procedure Name Priority Date/Time Associated Diagnosis Comments BI MAMMOGRAM OUTSIDE (NO INTERPRETATION) Routine 11/16/2012 12:00 AM EDT documented in this encounter Results * Mammogram Outside (No Interpretation) (11/16/2012 12:00 AM EDT) Narrative [facility] IMG INTERFACES - 06/01/2020 10:06 AM EST This study is for PACS storage only and not for interpretation. us Gloria Torres MD, MS IMG OUTS ZAC IMAGING W/OUT INTERPRETATION Final Result [facility] IMG INTERFACES documented in this encounter Visit Diagnoses Not on filedocumented in this encounter Additional Source Comments The information contained in this document represents components of the legal health record. It is not the complete legal health record.[facility]
--- OUTSIDE RECORDS SUMMARY | 2025-04-20 07:36 | XMS_ITS | Clinical Summary ---
Author Organization [facility] Address [address] [place] [address] Phone Care Team Providers Care Aircraft Layout Worker Name Role Phone Kenneth Jaeger MD Primary Care Provider [phone] Allergies Active Allergy Reactions Criticality Noted Date Comments Avenel 11/11/2021 Cat/Feline Products 11/11/2021 Cattle Epithelium Allergenic Extract 11/11/2021 Dog Dander 11/11/2021 House Dust Mite 11/11/2021 Feathers 11/11/2021 Grass Pollen 11/11/2021 Hazelnut 11/11/2021 Tree Nut 06/28/2020 Peanut 06/28/2020 Penicillins 03/22/2018 Soy 06/28/2020 [place] Pollen-Short Ragweed 11/11/2021 Medications No known medications Active Problems Problem Noted Date Diagnosed Date Status post excisional biopsy 05/31/2023 Overview (05/31/2023): Right breast excision 06/29/2020, ADH and epithelial atypia involving fibroadenoma Atypical ductal hyperplasia, 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 Encounters Date Type Department Care Team Description 03/31/2025 2:00 PM EDT Office Visit [facility] [address] [address] Chencho Jones MD, MS Skin lesion (Primary Dx) 03/25/2025 9:00 AM EDT Office Visit [facility] [address] [address] Montserrat Miramontes MD Neoplasm of uncertain behavior of skin (Primary Dx); Dermatofibroma; Scar; Subcutaneous nodule; Seborrheic keratoses; Callus; Dilated pore of [place] 03/06/2025 Orders Only [facility] [address] [place] [address] Alycia Finley Tinnitus, unspecified laterality (Primary Dx) 02/23/2025 Orders Only [facility] [address], [address] [place] [address] Margarito Thomas Visit for screening mammogram (Primary Dx) 02/20/2025 2:00 PM EDT Office Visit [facility] [address], [address] [place] [address] Soni Cueva CNP Atypical ductal hyperplasia of right breast (Primary Dx) from Last 3 Months Social History Tobacco Use Types Packs/Day Years [...] Orientation Straight 05/27/2020 10 :30 AM EST Last Filed Vital Signs Vital Sign Reading Time Taken Comments Blood Pressure 120/70 08/17/2020 10:04 AM EST Pulse 86 08/17/2020 10:04 AM EST Temperature 35.7 C (96.3 F) 08/17/2020 10:04 AM EST Respiratory Rate 16 08/17/2020 10:04 AM EST Oxygen Saturation 96% 08/17/2020 10:04 AM EST Inhaled Oxygen Concentration - - Weight 68.5 kg (151 lb) 08/17/2020 10:04 AM EST Height 165.1 cm (5' 5 ) 08/17/2020 10:04 AM EST Body Mass Index 25.13 08/17/2020 10:04 AM EST Plan of Treatment Upcoming Encounters Date Type Department Care Team (Late st Contact Info) Description 05/28/2025 1:30 PM EST Office Visit [facility] General [facility] [address] [place] [address] Angel Michel MD [address] [place] [address] [email or web address] 09/10/2025 3:00 PM EST Evaluation [facility] [address] [facility] [address] [place] [address] James Montaño AuD [address] [place] [address] [email or web address] Health Maintenance Due Date Last Done Comments LIPID PANEL 1965 DEPRESSION SCREENING 1975 HEPATITIS C SCREENING 1981 HIV ONE-TIME SCREENING (18-65 YEARS) 1981 PAP SMEAR 1984 COLOGUARD 2008 COLONOSCOPY 2008 COLORECTAL CANCER SCREENING 2008 FIT TEST 2008 FOBT 2008 SIGMOIDOSCOPY 2008 VIRTUAL COLONOSCOPY 2008 PNEUMOCOCCAL VACCINES (50+ years) (1 of 1 - PCV) 2013 ZOSTER VACCINES (1 of 2) 2013 INFLUENZA VACCINE (#1) 2025 COVID-19 VACCINE ( season) 2025 06/30/2022, 07/01/2021, 12/09/2020, Additional history exists MAMMOGRAM 08/23/2026 08/23/2024, 11/20, 05/31/2023, Additional history exists Adult Td,Tdap Booster 01/02/2035 01/02/2025, 015 RSV VACCINE (1 - 1-dose 75+ series) 2038 SMOKING STATUS SCREENING (Once After 26 Yrs) Completed 03/31/2025 HEPATITIS A VACCINES Aged Out No long er eligible based on patient's age to complete this topic HIB VACCINES Aged Out No longer eligi ble based on patient's age to complete this topic MENINGOCOCCAL VACCINES (ACWY) Aged Out No longer eligible based on patient's age to complete this topic MENINGOCOCCAL VACCINES (B) Aged Out N o longer eligible based on patient's age to complete this topic Medical Devices Not on file Procedures Procedure Name Priority Date/Time Associated Diagnosis Comments DERMATOPATHOLOGY Routine 03/31/2025 12:0 0 AM EDT BI MAMMOGRAM SCREENING WITH TOMOSYNTHESIS WITH CAD (BILATERAL) Routine 08/23/2024 11:01 AM EST Healthcare maintenance from Last 3 Months or Most Recently Relevant to Health Maintenance Results * Dermatopathology (03/31/2025 12:00 AM EDT) 03/31/2025 04/01/2025 Narrative [facility] - 04/07/2025 10:48 AM EDT CASE: [id number] PATIENT: CLAY MAURICIO Date: 1965 Sex: Female [facility] Department of Pathology [address] [place] [address] License No.: [id number] Pack Operator: Dr. Caleb Grant M.D., Ph.D. Physician: CHENCHO JONES MD, MS Procedure Date: 03/31/2025 Pathologist: Isaias Perez MD PATHOLOGIC DIAGNOSIS: A. SKIN, LEFT FOREHEAD, SHAVE BIOPSY: Superficial component of trichofolliculoma. B. SKIN, MID BACK, SHAVE BIOPSY: Epidermal inclusion cyst. CLINICAL DATA: History: A) Left forehead [favor trichofolliculoma vs. other] B) Mid back [favor cyst] Operation: A) Shave biopsy B) Excision Clinical Diagnosis: See Above TISSUE SUBMITTED: A/1. Skin: Left forehead B/2. Skin: Mid back GROSS DESCRIPTION: The specimen is received in formalin, in two parts, each labeled with the patient's name and medical record number. Part A, labeled Skin: Left forehead , consists of a chaney skin shave (0.7 x 0.6 x <0.1 cm). The epithelium is almost entirely surfaced by a chaney-white smooth, firm lesion. The specimen is inked blue, bisected, and entirely submitted. A1: 2 fragments. Part B, labeled Skin: Mid back , consists of a ruptured cystic structure surfaced by friable chaney soft skin (1.0 x 0.9 x 1.4 cm). The subcutaneous tissue including the cyst wall is inked blue, and the specimen is sectioned revealing white sebaceous debris. A account service representative section is submitted. The skin shave (1.0 x 0.3 cm) is grossly unremarkable. The specimen is inked blue, bisected, and entirely submitted separately. B1: Cyst, 1 fragment. B2: Skin shave, 2 fragments. Dictated by: Radha Gray By his/her signature below, the senior physician certifies that he/she personally conducted a microscopic examination ( gross only exam if so stated) of the described specimen(s) and rendered or confirmed the diagnosis(es) related thereto. Final Diagnosis by Isaias Perez MD, Electronically signed on Monday April 07, 2025 at 10:48:49AM us Chencho Jones MD, MS PATHOLOGY ORDERABLES Final Res ult Performing Organization Address City/State/[facility] Co de Phone Number [facility] [address] [place] [address] * BI MAMMOGRAM SCREENING WITH TOMOSYNTHESIS WITH CAD (BILATERAL) (08/23/2024 11:01 AM EST) Anatomical Region Laterality Modality Breast Left, Breast Right, Breast Bilateral Bila teral Mammography 08/24/2024 9:12 AM EST Impressions 08/24/2024 9:15 AM EST No mammographic evidence of malignancy in either breast. Annual screening mammography is recommended. BI-RADS 2 BENIGN The patient will be notified of the results and recommendations. Narrative 08/24/2024 9:15 AM EST BI MAMMOGRAM SCREENING WITH TOMOSYNTHESIS WITH CAD (BILATERAL) Additional patient information: Screening. COMPARISON: Comparison is made with relevant prior imaging. Breast composition: The breast tissue is heterogeneously dense which may obscure small masses. FINDINGS: Previous surgical biopsy in the right breast. No abnormal masses, suspicious calcifications, or other significant findings are identified mammographically in either breast. Procedure Note Gregorio Cardoso MD - 08/24/2024 BI MAMMOGRAM SCREENING WITH TOMOSYNTHESIS WITH CAD (BILATERAL) Additional patient information: Screening. COMPARISON: Comparison is made with relevant prior imaging. Breast composition: The breast tissue is heterogeneously dense which mayobscure small masses. FINDINGS: Previous surgical biopsy in the right breast. No abnormal masses, suspicious calcifications, or other significantfindings are identified mammographically in either breast. IMPRESSION: No mammographic evidence of malignancy in either breast. Annual screening mammography is recommended. BI-RADS 2 BENIGN The patient will be notified of the results and recommendations. Kenneth Jaeger MD IMG MG EXAMS Final Result from Last 3 Months or Most Recently Relevant to Health Maintenance Insurance [facility] PPO EPO [facility] PPO EPO PPO EPO PPO EPO PPO EPO [facility] PPO EPO [facility] PPO EPO [employer] [place] [place] PPO EPO [facility] PPO EPO Care Teams Aircraft Layout Worker Relationship Specialty Start Date End Date Kenneth Jaeger MD [address] [place] [address] [address] [place] [id number] PCP - General Internal Medicine 05/27/20 Additional Source Comments The information contained in this document represents components of the legal health record. It is not the complete legal health record.[facility]
--- OUTSIDE RECORDS SUMMARY | 2025-04-20 07:36 | XMS_ITS | Encounter Summary ---
Author Organization [facility] Address [address] [place] [phone] Phone Care Team Providers Care Operations Management Professionals Name Role Phone Kenneth Jaeger MD Primary Care Provider [phone] Encounter Details Date Type Department Care Team (Late st Contact Info) Description 11/05/2020 Procedure Pass [facility], [place] [address] [place] [address], [address] [place] [address] Social History Tobacco Use Types Packs/Day Years Used Date Smoking Tobacco: Never Smokeless Tobacco: Never Alcohol Use Standard Drinks/Week Comments No 0 (1 standard drink = 0.6 oz pur e alcohol) Comments No Sex and Gender Information Value [...] Description 05/28/2025 1:30 PM EST Office Visit [facility] [address] [place] [address] Angel Michel MD [address] [place] [address] [email or web address] 09/10/2025 3:00 PM EST Evaluation [facility] [address] [place] [address] James Montaño, AuD [address] [place] [address] [email or web address] documented as of this encounter Visit Diagnoses Not on filedocumented in this encounter Care Teams Operations Management Professionals Relationship Specialty Start Date End Date Kenneth Jaeger MD [address] [place] [address] [address] [place] [address] PCP - General Internal Medicine 05/27/20 documented as of this encounter Additional Source Comments The information contained in this document represents components of the legal health record. It is not the complete legal health record.[facility]
--- OUTSIDE RECORDS SUMMARY | 2025-04-20 07:36 | XMS_ITS | Encounter Summary ---
Author Organization [facility] Address [address] [place] [address] Phone Care Team Providers Care Ribbon Cutter Name Role Phone Kenneth Jaeger MD Primary Care Provider [phone] Encounter Details Date Type Department Care Team (Late st Contact Info) Description 10/17/2022 Procedure Pass [facility], [place] [address] [place] [address], 2nd [place] [address] Social History Tobacco Use Types Packs/Day Years [...] Office Visit [facility] Otolaryngology General LW 800 [place] [address] Angel Michel MD 800 [place] [address] [email or web address] 09/10/2025 3:00 PM EST Evaluation [facility] at [address] [place] [address] James Montaño, AuD 243 [place] [address] [email or web address] documented as of this encounter Visit Diagnoses Not on filedocumented in this encounter Care Teams Ribbon Cutter Relationship Specialty Start Date End Date Kenneth Jaeger MD [address] [place] [address] [address] [place] [address] PCP - General Internal Medicine 05/27/20 documented as of this encounter Additional Source Comments The information contained in this document represents components of the legal health record. It is not the complete legal health record.[facility]
--- OUTSIDE RECORDS SUMMARY | 2025-04-20 07:36 | XMS_ITS | Encounter Summary ---
Author Organization [facility] Address [address] [place] [address] Phone Care Team Providers Care Heading And Priming Tool Setter Name Role Phone Kenneth Jaeger MD Primary Care Provider [phone] Encounter Details Date Type Department Care Team (Late st Contact Info) Description 10/16/2022 Procedure Pass [facility] Breast [facility] Center [address] [facility] [address] [place] [address] Social History Tobacco Use Types Packs/Day Years [...] Description 05/28/2025 1:30 PM EST Office Visit [facility] Otolaryngology General LW 800 [place] [address] Angel Michel MD 800 [place] [address] [email or web address] 09/10/2025 3:00 PM EST Evaluation [facility] at [address] [place] [address] James Montaño, AuD 243 [place] [address] [email or web address] documented as of this encounter Visit Diagnoses Not on filedocumented in this encounter Care Teams Heading And Priming Tool Setter Relationship Specialty Start Date End Date Kenneth Jaeger MD [address] [place] [address] [address] [place] [address] PCP - General Internal Medicine 05/27/20 documented as of this encounter Additional Source Comments The information contained in this document represents components of the legal health record. It is not the complete legal health record.[facility]
--- OUTSIDE RECORDS SUMMARY | 2025-04-20 07:36 | XMS_ITS | Encounter Summary ---
Author Organization [facility] Address [address] [place] [address] Phone Care Team Providers Care Senior Environmental Practice Leader Name Role Phone Kenneth Jaeger MD Primary Care Provider [phone] Encounter Details Date Type Department Care Team (Late st Contact Info) Description 11/05/2020 Procedure Pass [facility] Breast Evaluation Center [address] [facility] [address] [place] [address] Social History Tobacco Use Types Packs/Day Years [...] Office Visit [facility] Otolaryngology General LW 800 [place] [address] Angel Michel MD 800 [place] [address] [email or web address] 09/10/2025 3:00 PM EST Evaluation [facility] at [address] [place] [address] James Montaño, AuD 243 [place] [address] [email or web address] documented as of this encounter Visit Diagnoses Not on filedocumented in this encounter Care Teams Senior Environmental Practice Leader Relationship Specialty Start Date End Date Kenneth Jaeger MD [address] [place] [address] [address] [place] [address] PCP - General Internal Medicine 05/27/20 documented as of this encounter Additional Source Comments The information contained in this document represents components of the legal health record. It is not the complete legal health record.[facility]
--- OUTSIDE RECORDS SUMMARY | 2025-04-20 07:36 | XMS_ITS | Clinical Summary ---
Author Organization [address] [place] [address] Address 175 [place] [address] Phone Care Team Providers Care Group Leader Semiconductor Processing Name Role Phone Kenneth Jaeger MD Primary Care Provider [phone] Allergies Active Allergy Reactions Criticality Noted Date Comments Penicillins 01/18/2015 Reaction not mentioned Medications EPINEPHrine (EpiPen 2-Ivan) 0.3 mg/0.3 mL injection Inject as directed. 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 Vitamin D deficiency 01/18/2015 Encounters Date Type Department Care Team Description 04/13/2025 Telephone Gastroenterology - [place] 175 [facility] 175 [facility] 200 [place] [address] Naya Condon MD 04/09/2025 Telephone Gastroenterology - 299 [facility] 299 [facility] [address] [place] [address] Frederick Koehler MD from Last 3 Months Immunizations Immunization Administration Dates Next Due Tdap Tetanus diptheria acell ular pertussis (Boostrix; Adacel) 7yo and older 05/12/2015 Surgical History Surgery Date Site/Laterality Comments SECTION 1995 and 2011 PROCEDURE: HISTORICAL DELIVERY OTHER SURGICAL HISTORY 11/16/12 PROCEDURE: MAMMOGRAM OTHER SURGICAL HISTORY 07/31/2011 PROCEDURE: OUTSIDE PAP SMEAR UPPER GASTROINTESTINAL ENDOSCOPY 05/18/2015 PROCEDURE: ME UPPER GI ENDOSCOPY PERFORMED; COMMENT: Visually normal; duodenal bx: normal. COLONOSCOPY 05/18/2015 PROCEDURE: HISTORICAL COLONOSCOPY; COMMENT: Visually normal; random bx: normal. Medical History Medical History Date Comments Vitamin D deficiency 01/18/2015 DX:Vitamin D deficiency Polyneuropathy 01/19/2015 DX:Polyneuropath y Glaucoma suspect 01/19/2015 DX:Glaucoma ronnie pect; COMMENT: 2012/ was to be followed [facility] History of thyroid nodule 01/20/2015 DX:His tory of thyroid nodule; COMMENT: Noted 2010 left/ needle aspiration/ benign Not seen on US 2012 History of hepatitis 01/20/2015 DX:History of hepatitis; COMMENT: Per transfer note age 16 Anemia 01/20/2015 DX:Anemia IBS (irritable bowel syndrome) 05/12/2015 D X:IBS (irritable bowel syndrome) Left kidney mass 11/23/2015 DX:Left kidney mass; COMMENT: 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, decreasing in size US 2015 Family History Medical History Relation Name Comments Hypertension Brother 1 Hypertension Father hepatitis Hypertension Mother rheumatic heart disease/osteoporosis Other: hepatitis Uncle 1 hepatoma Relation Name Status Comments Brother 1 Brother 2 Father Mother Uncle 1 Uncle 2 Social History Tobacco Use Types Packs/Day Years Used Date Smoking Tobacco: Never Smokeless Tobacco: Never Alcohol Use Standard Drinks/Week Comments No 0 (1 standard drink = 0.6 oz pur e alcohol) Comments Unknown Sex and Gender Information Value Date Recorded Sex Assigned at Not on file Legal Sex Female 10:31 PM EST Gender Identity Not on file Sexual Orientation Not on file Obstetrics History Plan of Treatment Health Maintenance Due Date Last Done Comments Breast Cancer Screening 1965 Pneumococcal Vaccine: 50+ Years (1 of 1 - PCV) 2013 Zoster Vaccines (1 of 2) 2013 Cervical Cancer Screening: P ap Smear 07/31/2014 07/31/2011 HIV Screening 07/18/2024 Social Influencers of Health Screening 07/18/2024 Depression Screening 07/23/2024 COVID-19 Vaccine (1 - 2023-2 5 season) 2025 Influenza Vaccine (#1) 2025 DTaP,Tdap,and Td Vaccines (2 - Td or Tdap) 05/12/2025 05/12/2015 Colorectal Cancer Screening: Colonoscopy 05/18/2025 05/18/2015, 05/18/2015 RSV Immunization Adult Patients (1 - 1-dose 75+ series) 2038 Hepatitis C Screening Completed 01/17/2008 HIB Vaccines Aged Out No longer eligi ble based on patient's age to complete this topic HPV Vaccines Aged Out No longer eligi ble based on patient's age to complete this topic Hepatitis A Vaccines Aged Out No long er eligible based on patient's age to complete this topic Hepatitis B Vaccines Aged Out No long er eligible based on patient's age to complete this topic IPV Vaccines Aged Out No longer eligi ble based on patient's age to complete this topic MMR Vaccines Aged Out No longer eligi ble based on patient's age to complete this topic Meningococcal ACWY Vaccine Aged Out N o longer eligible based on patient's age to complete this topic Meningococcal B Vaccine Aged Out No l onger eligible based on patient's age to complete this topic RSV Immunization Patients Under 20 months Aged Out No longer eligible b ased on patient's age to complete this topic Varicella Vaccines Aged Out No longer eligible based on patient's age to complete this topic Procedures Procedure Name Priority Date/Time Associated Diagnosis Comments COLONOSCOPY Routine 05/18/2015 PAP SMEAR Routine 07/31/2011 HEPATITIS C SCREENING Routine 01/17/2008 from Last 3 Months or Most Recently Relevant to Health Maintenance Results * Colonoscopy (05/18/2015) Colonoscopy no interpretation , abstracted Anatomical Region Laterality Modality Other Historical Provider MD HEALTH MAINTENANCE Final Result * Pap Smear (07/31/2011) Pap smear no interpretation , abstracted Historical Provider HEALTH MAINTENANCE Final Result * Hepatitis C Screening (01/17/2008) Hepatitis C Screening abstracted Historical Provider HEALTH MAINTENANCE Final Result from Last 3 Months or Most Recently Relevant to Health Maintenance [place] [address] [place] [address] Care Teams Group Leader Semiconductor Processing Relationship Specialty Start Date End Date Kenneth Jaeger MD [address] [place] [address] [address] [facility] [place] [address] PCP - General Internal Medicine 04/13/25
--- OUTSIDE RECORDS SUMMARY | 2025-04-20 07:36 | XMS_ITS | Encounter Summary ---
Author Organization [facility] Address [address] [place] [address] Phone Care Team Providers Care Metal Bed Assembler Name Role Phone Kenneth Jaeger MD Primary Care Provider [phone] Encounter Details Date Type Department Care Team (Late st Contact Info) Description 02/04/2022 Procedure Pass [facility] Breast [facility] [address] [facility] [address] [place] [address] Social History Tobacco Use Types Packs/Day Years [...] Office Visit [facility] Otolaryngology General LW 800 [place] [address] Angel Michel MD 800 [place] [address] [email or web address] 09/10/2025 3:00 PM EST Evaluation [facility] at [address] [place] [address] James Montaño, AuD 243 [place] [address] [email or web address] documented as of this encounter Visit Diagnoses Not on filedocumented in this encounter Care Teams Metal Bed Assembler Relationship Specialty Start Date End Date Kenneth Jaeger MD [address] [place] [address] [address] [place] [address] PCP - General Internal Medicine 05/27/20 documented as of this encounter Additional Source Comments The information contained in this document represents components of the legal health record. It is not the complete legal health record.[facility]
--- OUTSIDE RECORDS SUMMARY | 2025-04-20 07:37 | XMS_ITS | Encounter Summary ---
Author Organization [facility] Address [address] [place] [address] Phone Care Team Providers Care Drying Can Worker Name Role Phone Kenneth Jaeger MD Primary Care Provider [phone] Encounter Details Date Type Department Care Team (Late st Contact Info) Description 04/23/2024 Procedure Pass [facility] Breast Evaluation Center [address] [facility] [address] [place] [address] Social History Tobacco Use Types Packs/Day Years [...] Office Visit [facility] Otolaryngology General LW 800 [place] [address] Angel Michel MD 800 [place] [address] [email or web address] 09/10/2025 3:00 PM EST Evaluation [facility] at [facility] 243 [facility] 219 [place] [address] James Montaño AuD [address] [place] [address] [email or web address] documented as of this encounter Visit Diagnoses Not on filedocumented in this encounter Care Teams Drying Can Worker Relationship Specialty Start Date End Date Kenneth Jaeger MD [address] [place] [address] [place] [address] PCP - General Internal Medicine 05/27/20 documented as of this encounter Additional Source Comments The information contained in this document represents components of the legal health record. It is not the complete legal health record.[facility]
--- OUTSIDE RECORDS SUMMARY | 2025-04-20 07:37 | XMS_ITS | Encounter Summary ---
Author Organization [facility] Address [address] [facility] [address] [place] [address] Phone Care Team Providers Care Offal Worker Name Role Phone Kenneth Jaeger MD Primary Care Provider [phone] Encounter Details Date Type Department Care Team (Late st Contact Info) Description 06/01/2020 Ancillary Orders [facility] [address] [place] [address] Gloria Torres MD, MS 55 [facility] [address] [place] [phone] [email or web address] Abnormal mammogram Social History Tobacco Use Types Packs/Day Years [...] PM EST Office Visit [facility] Otolaryngology General 800 [place] [address] Angel Michel MD 800 [place] [address] [email or web address] 09/10/2025 3:00 PM EST Evaluation [facility] at [facility] [address] [address] James Montaño AuD 243 [place] [address] [email or web address] documented as of this encounter Results * Mammogram Outside With Interpretation Or Consult (06/01/2020 3:07 PM EST) 06/01/2020 Impressions [facility] - 06/02/2020 6:31 PM EST There is a mass measuring up to 7 mm in the retroareolar region of the right breast, which corresponds to biopsy-proven atypical ductal proliferation . Surgical consultation is recommended for atypia. No mammographic evidence of malignancy within the left breast. BI-RADS Category 2: Benign Finding Narrative [facility] - 06/02/2020 6:31 PM EST OUTSIDE INTERPRETATION NAME: Jaden Mauricio STUDIES PROVIDED FOR INTERPRETATION: 05/04/2020 Bilateral Screening Mammogram. 05/14/2020 Right Diagnostic Mammogram and Right Breast Diagnostic Ultrasound. 05/21/2020 Right Breast Ultrasound-Guided Core Biopsy and Post-Biopsy Mammogram. HISTORY: 54-year-old patient with recently diagnosed right breast atypia presents for second-opinion interpretation of outside facility imaging. FINDINGS: Screening Mammogram (05/04/2020) and Right Diagnostic Mammogram (05/14/2020): The breast tissue is heterogeneously dense, which could obscure detection of small masses. There is an oval mass with indistinct margins measuring 9 x 6 mm in the retroareolar region of the right breast, approximately 2 cm posterior to the nipple. No suspicious masses, calcifications or other abnormalities are seen within the left breast. Right Diagnostic Ultrasound (05/14/2020): Please note that ultrasound is an soda room operator-dependent real time examination, so evaluation of the provided static sonographic images is limited. Static sonographic images demonstrate an oval hypoechoic mass with indistinct margins measuring 7 x 6 x 5 mm in the retroareolar region of the right breast. Right Breast Ultrasound-Guided Core Needle Biopsy and Post-Biopsy Mammogram (05/21/2020): The right breast mass was biopsied under ultrasound guidance with subsequent placement of a ribbon-shaped clip. Clip appears in satisfactory position on the post-biopsy mammogram. 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 Procedure Note Alyson Johnson MD, PhD - 06/03/2020 OUTSIDE INTERPRETATION NAME: Jaden Mauricio STUDIES PROVIDED FOR INTERPRETATION: 05/04/2020 Bilateral Screening Mammogram. 05/14/2020 Right Diagnostic Mammogram and Right Breast DiagnosticUltrasound. 05/21/2020 Right Breast Ultrasound-Guided Core Biopsy andPost-Biopsy Mammogram. HISTORY: 54-year-old patient with recently diagnosed right breast atypiapresents for second-opinion interpretation of outside facility imaging. FINDINGS: Screening Mammogram (05/04/2020) and Right Diagnostic Mammogram(05/14/2020): The breast tissue is heterogeneously dense, which couldobscure detection of small masses. There is an oval mass with indistinct margins measuring 9 x 6 mm in theretroareolar region of the right breast, approximately 2 cm posterior tothe nipple. No suspicious masses, calcifications or other abnormalities are seenwithin the left breast. Right Diagnostic Ultrasound (05/14/2020): Please note that ultrasound isan soda room operator-dependent real time examination, so evaluation of the providedstatic sonographic images is limited. Static sonographic images demonstrate an oval hypoechoic mass withindistinct margins measuring 7 x 6 x 5 mm in the retroareolar region ofthe right breast. Right Breast Ultrasound-Guided Core Needle Biopsy and Post-BiopsyMammogram (05/21/2020): The right breast mass was biopsied underultrasound guidance with subsequent placement of a ribbon-shaped clip.Clip appears in satisfactory position on the post-biopsy mammogram. 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 IMPRESSION: There is a mass measuring up to 7 mm in the retroareolar region of theright breast, which corresponds to biopsy-proven atypical ductalproliferation . Surgical consultation is recommended for atypia. No mammographic evidence of malignancy within the left breast. BI-RADS Category 2: Benign Finding us Gloria Torres MD, MS IMG OUTSIDE IMAG ING W/ INTERPRETATION Final Result [facility] [address] [place] [address] documented in this encounter Visit Diagnoses Diagnosis Abnormal mammogram Abnormal mammogram, unspecified Abnormal mammogram Abnormal mammogram, unspecified documented in this encounter Care Teams Offal Worker Relationship Specialty Start Date End Date Mil, Kenneth Taveras MD [address] [place] [address] PCP - General Internal Medicine 05/27/20 documented as of this encounter Additional Source Comments The information contained in this document represents components of the legal health record. It is not the complete legal health record.[facility]
--- OUTSIDE RECORDS SUMMARY | 2025-04-20 07:37 | XMS_ITS | Encounter Summary ---
Author Organization [facility] Address [address] [place] [address] Phone Care Team Providers Care Electric Car Operator Name Role Phone Kenneth Jaeger MD Primary Care Provider [phone] Encounter Details Date Type Department Care Team (Late st Contact Info) Description 05/31/2023 Procedure Pass [facility], [place] [address] [facility], 2nd [place] [address] Social History Tobacco Use Types Packs/Day Years [...] Office Visit [facility] Otolaryngology General LW 800 [place] [address] Angel Michel MD 800 [place] [address] [email or web address] 09/10/2025 3:00 PM EST Evaluation [facility] Tinnitus Clinic at [facility] [address] [facility] 219 [place] [address] James Montaño AuD [address] [place] [address] [email or web address] documented as of this encounter Visit Diagnoses Not on filedocumented in this encounter Care Teams Electric Car Operator Relationship Specialty Start Date End Date Kenneth Jaeger MD [address] [place] [address] [place] [phone] PCP - General Internal Medicine 05/27/20 documented as of this encounter Additional Source Comments The information contained in this document represents components of the legal health record. It is not the complete legal health record.[facility]
--- OUTSIDE RECORDS SUMMARY | 2025-04-20 07:37 | XMS_ITS | Encounter Summary ---
Author Organization [facility] Address [address] [place] [address] Phone Care Team Providers Care Policy Service Coordinator Name Role Phone Kenneth Jaeger MD Primary Care Provider Encounter Details Date Type Department Care Team (Late st Contact Info) Description 04/23/2024 Ancillary Orders [facility] Radiology Department [address] [employer] Systems Administrator [address] [place] [address] Kenneth Jaeger MD [address] [place] [phone] Healthcare maintenance (Primary Dx) Social History Tobacco Use Types Packs/Day Years [...] [facility] Ot[facility] General LW 800 [place] [address] Angel Michel MD 800 [place] [address] [email or web address] 09/10/2025 3:00 PM EST Evaluation [facility] Tinnitus Clinic at [facility] [address] [facility] [address] [place] [address] James Montaño AuD [address] [place] [address] [email or web address] documented as of this encounter Results * BI MAMMOGRAM SCREENING WITH TOMOSYNTHESIS WITH [...] Jaeger MD IMG MG EXAMS Final Result documented in this encounter Visit Diagnoses Diagnosis Healthcare maintenance- Primary Healthcare maintenance documented in this encounter Care Teams Policy Service Coordinator Relationship Specialty Start Date End Date Kenneth Jaeger MD [address] [place] [address] Drive [address] [place] [address] PCP - General Internal Medicine 05/27/20 documented as of this encounter Additional Source Comments The information contained in this document represents components of the legal health record. It is not the complete legal health record.[facility]
--- OUTSIDE RECORDS SUMMARY | 2025-04-20 07:37 | XMS_ITS | Encounter Summary ---
Author Organization [facility] Address [address] [place] [address] Care Team Providers Care Center Rep Name Role Phone Kenneth Jaeger MD Primary Care Provider [phone] Reason for Visit * Reason Onset Date Comments special procedure 04/13/2025 Encounter Details Date Type Department Care Team (Late st Contact Info) Description 04/13/2025 Telephone Gastroenterology - [place] [address] [facility] [address] [facility] [address] [place] [phone] Naya Condon MD [address] [facility] [address] [place] [address] Social History Tobacco Use Types Packs/Day Years Used Date Smoking Tobacco: Never Smokeless Tobacco: Never Alcohol Use Standard Drinks/Week Comments No 0 (1 standard drink = 0.6 oz pur e alcohol) Comments Unknown Sex and Gender Information Value Date Recorded Sex Assigned at Not on file Legal Sex Female 10:31 PM EST Gender Identity Not on file Sexual Orientation Not on file documented as of this encounter Progress Notes * Joy Meek MA - 04/16/2025 11:27 AM EDT Meds and allergies updated already, given to schedulers * Mitzi Morgan - 04/13/2025 10:56 AM EDT Records received from [facility] for colonoscopy. Given to Yecenia to update allergies & med list documented in this encounter Plan of Treatment Not on file documented as of this encounter Visit Diagnoses Not on filedocumented in this encounter Care Teams Center Rep Relationship Specialty Start Date End Date Kenneth Jaeger MD [address] [place] [address] Dr Liliya [address] [facility] [place] [address] PCP - General Internal Medicine 04/13/25 documented as of this encounter
--- OUTSIDE RECORDS SUMMARY | 2025-04-20 07:37 | XMS_ITS | Encounter Summary ---
Author Organization [facility] Address [address] [place] [address] [place] [address] Phone Care Team Providers Care Patternmaker All Around Name Role Phone Kenneth Jaeger MD Primary Care Provider [phone] Encounter Details Date Type Department Care Team (Late st Contact Info) Description 06/01/2020 Ancillary Orders [facility] [address] [facility], [address] [place] [address] Gloria Torres MD, [place] [address] [phone] [email or web address] Social History Tobacco Use Types Packs/Day Years [...] Office Visit [facility] [address] [place] [address] Angel Michel MD 800 [place] [address] [email or web address] 09/10/2025 3:00 PM EST Evaluation [facility] [address] [facility] [address] [place] [address] James Montaño AuD 243 [place] [address] [email or web address] documented as of this encounter Visit Diagnoses Not on filedocumented in this encounter Care Teams Patternmaker All Around Relationship Specialty Start Date End Date Po, Kenneth Taveras MD [address] [place] [phone] PCP - General Internal Medicine 05/27/20 documented as of this encounter Additional Source Comments The information contained in this document represents components of the legal health record. It is not the complete legal health record.[facility]
--- OUTSIDE RECORDS SUMMARY | 2025-04-20 07:38 | XMS_ITS | Encounter Summary ---
Author Organization [facility] Address [address] [place] [phone] Phone Care Team Providers Care High School Art Teacher Name Role Phone Kenneth Jaeger MD Primary Care Provider Encounter Details Date Type Department Care Team (Late Contact Info) Description 06/29/2020 Procedure Pass [facility] PERIOPERATIVE DEPT [address] [place] [phone] Social History Tobacco Use Types Packs/Day Years [...] Encounters Date Type Department Care Team (Late Contact Info) Description 05/28/2025 1:30 PM EST Office Visit [facility] 800 [place] [address] Angel Michel MD 800 [place] [address] [email or web address] 09/10/2025 3:00 PM EST Evaluation [facility] at [address] [place] [address] James Montaño, Domo [address] [place] [address] [email or web address] documented as of this encounter Visit Diagnoses Not on filedocumented in this encounter Care Teams High [employer] Art Teacher Relationship Specialty Start Date End Date Kenneth Jaeger MD [address] [place] [address] [place] [phone] PCP - General Internal Medicine 05/27/20 documented as of this encounter Additional Source Comments The information contained in this document represents components of the legal health record. It is not the complete legal health record.[facility]
--- OUTSIDE RECORDS SUMMARY | 2025-04-20 07:38 | XMS_ITS | Encounter Summary ---
Author Organization [facility] Address [address] [place] [address] Phone Care Team Providers Care Ferry Boat Captain Name Role Phone Kenneth Jaeger MD Primary Care Provider [phone] Encounter Details Date Type Department Care Team (Late st Contact Info) Description 06/23/2020 [facility]illary [facility] [address] [facility], 9th Floor, [address] [place] [address] Miriam Mario MD 55 [place] [address] [email or web address] Atypical ductal hyperplasia of right breast Social History Tobacco Use Types Packs/Day Years [...] Office Visit [facility] [address] [place] [address] Angel Michel MD 800 [place] [address] [email or web address] 09/10/2025 3:00 PM EST Evaluation [facility] at [facility] [address] [address] James Montaño AuD 243 [place] [address] [email or web address] documented as of this encounter Results * BI MAMMOGRAM BREAST SPECIMEN POST SURGICAL BIOPSY NO TOMOSYNTHESIS NO CAD (RIGHT) (06/29/2020 10:27AM EST) Anatomical Region Laterality Modality Breast Right, Breast Bilateral Right M ammography 06/29/2020 Impressions 06/29/2020 4:28 PM EST Successful needle localization of the mass and clip in the right breast. These findings were communicated to Dr. Gloria Torres at 10:30 PM on 06/29/2020. As the attending physician, I was present for arce portions of the procedure and otherwise immediately available. Narrative 06/29/2020 4:28 PM EST HISTORY - 55 year old female with history of right breast atypical ductal hyperplasia who presents for wire localization procedure. PERCUTANEOUS NEEDLE LOCALIZATION - right Comparison was made to prior studies. Ultrasound Guidance The procedure was explained in detail to the patient, her questions were answered, and she consented to the localization. A pre-procedure time-out was performed using two patient identifiers, confirming patient identity and procedure to be performed. Using the usual sterile technique, local anesthesia was achieved with 1% lidocaine. Under sonographic guidance, a wire was deployed adjacent to the mass and clip in the subareolar right breast. The patient was transferred to the operating room in stable condition. Specimen radiography confirms the presence of the mass, clip and intact wire in the specimen. Procedure Note Rick Magana MD, PhD - 06/29/2020 HISTORY - 55 year old female with history of right breast atypical ductalhyperplasia who presents for wire localization procedure. PERCUTANEOUS NEEDLE LOCALIZATION - right Comparison was made to prior studies. Ultrasound Guidance The procedure was explained in detail to the patient, her questions wereanswered, and she consented to the localization. A pre-procedure time-outwas performed using two patient identifiers, confirming patient identityand procedure to be performed. Using the usual sterile technique, localanesthesia was achieved with 1% lidocaine. Under sonographic guidance, awire was deployed adjacent to the mass and clip in the subareolar right breast. The patient was transferred to the operating room in stable condition. Specimen radiography confirms the presence of the mass, clip and intactwire in the specimen. IMPRESSION: Successful needle localization of the mass and clip in the right breast.These findings were communicated to Dr. Gloria Torres at 10:30 PM on06/29/2020. As the attending physician, I was present for arce portions of theprocedure and otherwise immediately available. us Miriam Mario MD IMG BI IRP GUIDED BREAST PROC Final Result * [place] Breast Needle Localization (Right) (06/29/2020 8:55 AM EST) Anatomical Region Laterality Modality Breast Right, Breast Bilateral Right U ltrasound 06/29/2020 Impressions 06/29/2020 4:28 PM EST Successful needle localization of the mass and clip in the right breast. These findings were communicated to Dr. Gloria Torres at 10:30 PM on 06/29/2020. As the attending physician, I was present for arce portions of the procedure and otherwise immediately available. Narrative 06/29/2020 4:28 PM EST HISTORY - 55 year old female with history of right breast atypical ductal hyperplasia who presents for wire localization procedure. PERCUTANEOUS NEEDLE LOCALIZATION - right Comparison was made to prior studies. Ultrasound Guidance The procedure was explained in detail to the patient, her questions were answered, and she consented to the localization. A pre-procedure time-out was performed using two patient identifiers, confirming patient identity and procedure to be performed. Using the usual sterile technique, local anesthesia was achieved with 1% lidocaine. Under sonographic guidance, a wire was deployed adjacent to the mass and clip in the subareolar right breast. The patient was transferred to the operating room in stable condition. Specimen radiography confirms the presence of the mass, clip and intact wire in the specimen. Procedure Note Rick Magana MD, PhD - 06/29/2020 HISTORY - 55 year old female with history of right breast atypical ductalhyperplasia who presents for wire localization procedure. PERCUTANEOUS NEEDLE LOCALIZATION - right Comparison was made to prior studies. Ultrasound Guidance The procedure was explained in detail to the patient, her questions wereanswered, and she consented to the localization. A pre-procedure time-outwas performed using two patient identifiers, confirming patient identityand procedure to be performed. Using the usual sterile technique, localanesthesia was achieved with 1% lidocaine. Under sonographic guidance, awire was deployed adjacent to the mass and clip in the subareolar right breast. The patient was transferred to the operating room in stable condition. Specimen radiography confirms the presence of the mass, clip and intactwire in the specimen. IMPRESSION: Successful needle localization of the mass and clip in the right breast.These findings were communicated to Dr. Gloria Torres at 10:30 PM on06/29/2020. As the attending physician, I was present for arce portions of theprocedure and otherwise immediately available. Miriam Mario MD IMG BI IRP GUIDED BREAST PROC Final Result documented in this encounter Visit Diagnoses Diagnosis Atypical ductal hyperplasia of right breast Atypical ductal hyperplasia of right breast Atypical ductal hyperplasia of right breast documented in this encounter Care Teams Ferry Boat Captain Relationship Specialty Start Date End Date Po, Kenneth Taveras MD [address] [place] [address] [place] [phone] PCP - General Internal Medicine 05/27/20 documented as of this encounter Additional Source Comments The information contained in this document represents components of the legal health record. It is not the complete legal health record.[facility]
--- OUTSIDE RECORDS SUMMARY | 2025-04-20 07:38 | XMS_ITS ---
Author Name [facility] Organization Unknown Allergies Allergen Reaction Severity Comment Documented Date Source Statu s [facility] Encounters Encounter Type Encounter Reason Primary Diagnosis Location Date Ambulatory [facility] 04/24/2023 Ambulatory [facility] 03/23/2023 Ambulatory [facility] 03/20/2023 Ambulatory [facility] 02/12/2023 Ambulatory [facility] 02/12/2023 Ambulatory [facility] 02/12/2023 Ambulatory [facility] 02/08/2023 Ambulatory [facility] 01/15/2023 Amb[facility] [place] 01/15/2023 Ambulatory [facility] 01/15/2023 Ambulatory [facility] 01/15/2023
--- OUTSIDE RECORDS SUMMARY | 2025-04-20 07:38 | XMS_ITS | Encounter Summary ---
Author Organization [facility] Address [address] [place] [address] Phone Care Team Providers Care Semiconductor Technician Name Role Phone Kenneth Jaeger MD Primary Care Provider Encounter Details Date Type Department Care Team (Late st Contact Info) Description 07/09/2020 Procedure Pass [facility], [facility] [address] [facility], 2nd [place] [address] Social History Tobacco Use Types Packs/Day Years [...] EST Office Visit [facility] 800 [place] [address] Angel Michel MD 800 [place] [address] [email or web address] 09/10/2025 3:00 PM EST Evaluation [facility] at [address] [place] [address] James Montaño, Domo [address] [place] [address] [email or web address] documented as of this encounter Visit Diagnoses Not on filedocumented in this encounter Care Teams Semiconductor Technician Relationship Specialty Start Date End Date Kenneth Jaeger MD [address] [place] [address] [address] [place] [phone] PCP - General Internal Medicine 05/27/20 documented as of this encounter Additional Source Comments The information contained in this document represents components of the legal health record. It is not the complete legal health record.[facility]
[2025-04-20 07:45] LABS: MANUAL DIFF FLAG NO
[2025-04-20 08:02] LABS: Hematocrit 36.9 % (37.0-47.0); Hemoglobin 12.5 g/dl (12.0-16.0); Imm Gran Abs Auto 0.03 X10*3/uL (0.00-0.03); Imm Gran Pct Auto 0.4 % (0.0-0.4); Lymphocytes Absolute Auto 1.8 X10*3/uL (1.2-4.9); Mean Corpuscular HGB Conc 33.9 g/dl (31.0-35.0); Mean Corpuscular Hemoglobin 31.0 pg (27.0-33.0); Mean Corpuscular Volume 91.6 fL (80.0-98.0); NRBC Abs Auto 0.000 X10*3/uL (0.0-0.012); NRBC Pct Auto 0.0 /100WBC (0.0-0.2); Platelet Count 166 X10*3/uL (160-400); Red Blood Count 4.03 X10*6/uL (4.20-5.50); White Blood Count 7.0 X10*3/uL (4.8-10.8)
[2025-04-20 08:50] LABS: Alanine Aminotransferase 35 U/L (0-31); Albumin Level 4.4 g/dL (3.5-5.0); Alkaline Phosphatase 63 U/L (39-117); Anion Gap 12 (12-20); Aspartate Amino Transferase 27 U/L (5-31); Blood Urea Nitrogen 19 mg/dL (9-16); Calcium 9.3 mg/dL (8.4-10.2); Carbon Dioxide 26 mmol/L (22-29); Chloride 109 mmol/L (96-108); Cholesterol 216 mg/dL (<200); Estimated Glomerular Filt Rate > 60; HDL Cholesterol 40 mg/dL (>40); Potassium 3.8 mmol/L (3.3-5.1); Sodium 143 mmol/L (135-145); Total Protein 7.3 g/dL (6.5-8.0); Triglycerides 163 mg/dL (<150)
[2025-04-20 08:59] LABS: Free T4 (Free Thyroxine) 0.90 ng/dL (0.71-1.85); Thyroid Stimulating Hormone 4.30 uIU/mL (0.32-4.0)
[2025-04-20 09:17] LABS: Folate 13.6 ng/mL (> or = 4.0); Vitamin B12 835 pg/mL (200-900)
[2025-04-21 11:19] LABS: Rubeola IgG (Measles) 206.00 AU/mL
== END 2025-04-20 07:34 | disposition home or self-care (01) ==
LOC: HO.LAB 07:33
PROVIDERS: PCP Internal Medicine; Visit Provider Internal Medicine
DX: Z02.0 Encounter for examination for admission to educational institution (principal); Z13.1 Encounter for screening for diabetes mellitus; E78.00 Pure hypercholesterolemia, unspecified
CPT/HCPCS: 36415; 80053; 80061; 82306; 82607; 82746; 83036; 84439; 84443; 85025; 86735; 86762; 86765; 86787

== ENCOUNTER 2025-05-20 10:04 | Outpatient (AMB) | payer BC, SELFPAY ==
[2025-05-20 10:06] VITALS: BP 120/68; PULSE 85; TEMP 36.1; O2SAT 96; BMI 26.1
--- NOTE | 2025-05-20 10:06 | A.OFFPC_ITS ---
Vital Signs 05/20/25 10:06 Height 5 ft 5 in Weight 157 lb BMI 26.1 BP 120/68 Blood Pressure Location Lt brachial Position Sitting Pulse 85 Pulse Source Pulse Oximeter Temp 97.0 F Temp Source Temporal Artery Scan Pulse Oximetry (%) 96 Oxygen Delivery Method Room Air Intake Visit Reasons: Follow up on Left kidney mass and new lab results Allergies penicillin V Allergy (Unknown, Verified 05/20/25 10:09) anaphylaxis Tobacco use date assessed: 05/20/25 Dental Screening Dental Screen Date: 05/20/25 Did you have a dental visit in the last 12 months?: Yes Did you have a dental problem in the last 6 months where you did not have access to dental care?: No Was dental information given to patient?: Patient has dentist [facility] Medical History Overweight (BMI 25.0-29.9) Food allergy Vitamin D deficiency Allergic rhinitis Surgical History History of section Family History Father No problems noted. Mother Atrial fibrillation Myocardial infarct Rheumatic heart disease Brother Hypertension Daughter Allergies Paternal Uncle Liver cancer Social History Housing: House Alcohol intake: never Patient Tobacco Use Status: Never used Tobacco e-Cigarette/Vaping Use: Never Used Second Hand Smoke Exposure: No service: No Current occupational status: employed Current occupational exposures/hazards: No Cognitive needs: No Hearing needs: No Vision needs: No Questionnaire PHQ-9 Over the last 2 weeks, how often have you been bothered by any of the following problems? 1. Little interest or pleasure in doing things: not at all 2. Feeling down, depressed, or hopeless: not at all 3. Trouble falling or staying asleep, or sleeping too much: several days 4. Feeling tired or having little energy: several days 5. Poor appetite or overeating: not at all 6. Feeling bad about yourself - or that you are a failure or have let yourself or your family down: not at all 7. Trouble concentrating on things, such as reading the newspaper or watching television: not at all 8. Moving or speaking so slowly that other people could have noticed. Or the opposite - being so fidgety or restless that you have been moving around a lot more than usual: not at all 9. Thoughts that you would be better off or of hurting yourself in some way: not at all Total score: 2 Source: Developed by Drs. Paco Krishna, Ely Rockwell, Darrel Ruiz and colleagues, with an educational micky from [employer]. Thrive Questionnaire Date Thrive assessed: 12/27/24 I am a: Patient What is your living situation today?: I have a steady place to live Within the past 12 months, did the food you bought not last and you didn't have the money to get more?: Never true Within the past 12 months, did you worry whether your food would run out before you got money to buy more?: Never true Do you have trouble paying for medicines?: No Do you have trouble getting transportation to medical appointments?: No Do you have trouble paying your heating and electricity bill?: No Do you have trouble taking care of your child, family member or friend?: No Do you have trouble with day-to-day activities such as bathing, preparing meals, shopping, managing finances, etc.?: No Are you currently unemployed and looking for a job?: No Are you interested in more education?: No Please select the resources that you would like help with: None Currently or been in a relationship where the following occur: No concerns reported THRIVE Score: 0 AUDIT C Alcohol Use Questionnaire (AUDIT-C) 1. How often do you have a drink containing alcohol?: Never 3. How often do you have six or more drinks on one occasion?: Never Total Score: 0 PATI-7 AMB Questionnaire PATI-7 Date PATI - 7 assessed: 01/02/25 Feeling nervous, anxious, or on edge: 0 = Not at all Not being able to stop or control worryin = Not at all Worrying too much about different things: 0 = Not at all Trouble relaxin = Not at all Being so restless that it is hard to sit still: 0 = Not at all Becoming easily annoyed or irritable: 0 = Not at all Feeling afraid as if something awful might happen: 0 = Not at all Total PATI-7 score (0-4 normal; 5-9 mild; 10-14 moderate; 15-21 severe): 0 Source: Developed by Drs. Paco Krishna, Ely Rockwell, Darrel Ruiz and colleagues, with an educational micky from [employer]. Physical exam (Primary Care) Vital Signs: Last Vital Signs Temp 97.0 F 05/20/25 10:06 Pulse 85 05/20/25 10:06 BP 120/68 05/20/25 10:06 Pulse Ox 96 05/20/25 10:06 Oxygen Delivery Method Room Air 05/20/25 10:06 BMI result Body Mass Index 26.1 Tobacco/Smoking Status: Tobacco use Status Tobacco use date assessed 05/20/25 05/20/25 10:09 Patient Tobacco Use Status Never used Tobacco 05/20/25 10:09 e-Cigarette/Vaping Use Never Used 05/20/25 10:09 PHQ-9: PHQ-9 Score PHQ-9: Total score 2 05/20/25 10:14 Thrive Assessment: Date of Thrive Assessment Date Thrive assessed 12/27/24 05/20/25 10:09 Currently or been in a relationship where the following occur: No concerns reported Const General: alert; No acute distress Eyes Conjunctivae: conjunctivae normal Resp Auscultation: clear to auscultation bilaterally Cardio Rate: regular rate Rhythm: regular rhythm GI Inspection: Yes normal to inspection Extrem General: Yes normal to inspection and No edema Coding Level of Care Code Est Pt Level 4 (58663) Complex EM visit Add On G2211 Diagnoses Impaired glucose tolerance R73.02 Overweight (BMI 25.0-29.9) E66.3 Hypercholesterolemia E78.00 Hepatic steatosis K76.0 Left kidney mass N28.89 Atypical ductal hyperplasia of right breast N60.91 Finger pain M79.646 Tinnitus H93.19 Snoring R06.83 Assessment & Plan Assessment & Plan (1) Impaired glucose tolerance: Code(s): R73.02 - Impaired glucose tolerance (oral) Category: Medical Plan: Decrease the amount of carbohydrate intake, pasta, bread, rice and potatoes are all sugar and that is aside from all the sweet stuff, remember that fruits are good but they are Sweet also. (2) Overweight (BMI 25.0-29.9): Code(s): E66.3 - Overweight Category: Medical Plan: Diet and exercise (3) Hypercholesterolemia: Code(s): E78.00 - Pure hypercholesterolemia, unspecified Category: Medical Plan: Avoid fried foods, chicken skin, eggs, butter margarine, pastries and meat. Be it pork or beef they have a lot of cholesterol LDL goal of less than 130 and triglyceride of less than 150 (4) Hepatic steatosis: Code(s): K76.0 - Fatty (change of) liver, not elsewhere classified Category: Medical Plan: Low-fat diet and exercise (5) Left kidney mass: Comment: October 2015 abdominal ultrasound compared to January 2015 interval decrease in size of the echogenic mass in the upper pole of the left kidney probably angiomyolipoma 0.8 x 0.6 x 0.8 cm Code(s): N28.89 - Other specified disorders of kidney and ureter Category: Medical Plan: Will order for an ultrasound this time (6) Atypical ductal hyperplasia of right breast: Comment: 2019 [place] testing Code(s): N60.91 - Unspecified benign mammary dysplasia of right breast Category: Medical Plan: Continue with monitoring of MRI and mammogram (7) Finger pain: Code(s): M79.646 - Pain in unspecified finger(s) Category: Medical (8) Tinnitus: Code(s): H93.19 - Tinnitus, unspecified ear Category: Medical (9) Snoring: Code(s): R06.83 - Snoring Category: Medical Plan will be seeing ent for hearing test, scheduled for colon test History of Present Illness The patient is a 59-year-old overweight female with a history of hypercholesterolemia, bilateral knee pain, peripheral vascular disease, impaired glucose tolerance, and hepatic steatosis. Recent blood work from April 20 showed normal blood count, electrolytes, and renal function, but revealed mildly elevated blood sugar, an increased hemoglobin A1c, a mildly elevated liver enzyme, elevated thyroid levels, and cholesterol of 144. 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 The patient's last colonoscopy was in 2015 and her last mammogram was in November 2024. She was seen on May 05 for a cyst on her mid-back and a biopsy of a lesion on her left forehead. Health Maintenance - Last colonoscopy was performed in 2015. - The last mammogram was in November 2024. - Continued monitoring with MRI and mammogram is planned for atypical ductal hyperplasia. - Recommended diet and exercise for cholesterol management. - Cholesterol goals include an LDL of less than 130 and triglycerides of less than 150. Social History - Exercise: Recommended exercise as part of the management plan. - Diet: Recommended a low-fat diet. Review of Systems Physical Exam Results - Laboratory results from April 20 revealed a normal blood count, normal electrolytes, and normal renal function. - Blood sugar was mildly elevated with an increase in hemoglobin A1c. - Liver enzymes were noted to be mildly elevated. - Cholesterol was high at 144. - Thyroid function was elevated. Plan Patient was informed and verbally consented to the use of an ambient scribe for clinic note documentation during this visit. 1. Hypercholesterolemia The plan includes continuing with a low-fat diet and exercise, with a target LDL goal of less than 130 and triglyceride goal of less than 150. 2. Impaired Glucose Tolerance Management includes diet and exercise. 3. Hepatic Steatosis An ultrasound will be ordered to further evaluate the liver. 4. Atypical Ductal Hyperplasia Of The Right Breast The patient will continue with monitoring via MRI and mammogram. Discussion Notes I reviewed the patient's medical history, including hypercholesterolemia, atypical ductal hyperplasia, impaired glucose tolerance, peripheral vascular disease, hepatic steatosis, and a left renal mass. We discussed the recent lab results from April 20, noting the mildly elevated blood sugar, increased hemoglobin A1c, mildly elevated liver enzyme, cholesterol of 144, and an elevated thyroid level. I recommended continuing a low-fat diet and exercise, with cholesterol goals of an LDL less than 130 and triglycerides less than 150. An ultrasound will be ordered to assess the liver. We will continue monitoring her breast health with MRI and mammography. Patient Instructions - Continue with diet and exercise. - Follow a low-fat diet to help manage your cholesterol. - An order will be placed for a liver ultrasound. - Continue to get your regular monitoring with MRI and mammograms. Orders: Orders US abdomen complete Today N28.89 - Other specified disorders of kidney and ureter, R79.89 - Other specified abnormal findings of blood chemistry Lipid Panel 3 Months E78.00 - Pure hypercholesterolemia, unspecified, K76.0 - Fatty (change of) liver, not elsewhere classified Hemoglobin A1c 3 Months K76.0 - Fatty (change of) liver, not elsewhere classified Reticulocyte Count 3 Months K76.0 - Fatty (change of) liver, not elsewhere classified Erythrocyte Sedimentation Rate 3 Months M79.646 - Pain in unspecified finger(s) Complete Blood Count Auto Diff 3 Months K76.0 - Fatty (change of) liver, not elsewhere classified Comprehensive Met. Panel 3 Months K76.0 - Fatty (change of) liver, not elsewhere classified Thyroid Stimulating Hormone 3 Months K76.0 - Fatty (change of) liver, not elsewhere classified Free T4 (Free Thyroxine) 3 Months K76.0 - Fatty (change of) liver, not elsewhere classified Ferritin 3 Months K76.0 - Fatty (change of) liver, not elsewhere classified IRON PROFILE 3 Months K76.0 - Fatty (change of) liver, not elsewhere classified Rheumatoid Factor 3 Months M79.646 - Pain in unspecified finger(s) C Reactive Protein 3 Months M79.646 - Pain in unspecified finger(s) XR Hand Curt 2V Today M79.646 - Pain in unspecified finger(s)
== END 2025-05-20 10:38 | disposition home or self-care (01) ==
LOC: HO.HMCH 10:05
PROVIDERS: PCP Internal Medicine; Visit Provider Internal Medicine
DX: R73.02 Impaired glucose tolerance (oral) (principal); E66.3 Overweight; E78.00 Pure hypercholesterolemia, unspecified; K76.0 Fatty (change of) liver, not elsewhere classified; N28.89 Other specified disorders of kidney and ureter; N60.91 Unspecified benign mammary dysplasia of right breast; M79.646 Pain in unspecified finger(s); H93.19 Tinnitus, unspecified ear; R06.83 Snoring

== ENCOUNTER 2025-05-20 10:04 | Outpatient (REF) | payer BC, SELFPAY ==
--- OUTSIDE RECORDS SUMMARY | 2012-11-16 | XMS_ITS | Encounter Summary ---
Author Organization [facility] Address [address] [place] [phone] Phone Care Team Providers Care Customer Development Representative Name Role Phone Unavailable Primary Care Provider Unavailabl e Encounter Details Date Type Department Care Team (Late st Contact Info) Description 11/16/2012 Hospital Encounter [facility] [address] [place] [address] Gloria Torres MD, MS [address] [place] [address] [place] [address] [phone] [email or web address] Social History Tobacco Use Types Packs/Day Years [...] Description 05/28/2025 1:30 PM EST Office Visit [facility] Otolaryngology General [address] [place] [address] Angel Michel MD [address] [place] [address] [email or web address] 09/10/2025 3:00 PM EST Evaluation [facility] [address] [place] [address] James Montaño AuD [address] [place] [address] [email or web address] documented as of this encounter Procedures Procedure Name Priority Date/Time Associated Diagnosis Comments BI MAMMOGRAM OUTSIDE (NO INTERPRETATION) Routine 11/16/2012 12:00 AM EDT documented in this encounter Results * Mammogram Outside (No Interpretation) (11/16/2012 12:00 AM EDT) Narrative [facility] IMG INTERFACES - 06/01/2020 10:06 AM EST This study is for PACS storage only and not for interpretation. us Gloria Torres MD, MS IMG OUTS ZAC IMAGING W/OUT INTERPRETATION Final Result [facility] IMG INTERFACES documented in this encounter Visit Diagnoses Not on filedocumented in this encounter Additional Source Comments The information contained in this document represents components of the legal health record. It is not the complete legal health record.[facility]
--- NOTE | ~2025-05-20 | XR_ITS ---
Exam: XR HAND 2 VIEWS BILATERAL, bilateral hand x-rays TECHNIQUE: AP, lateral, and oblique views upper extremity, bilateral hands INDICATION: M79.646 - Pain in unspecified finger(s) COMPARISON: None available. FINDINGS: RIGHT HAND: Joint spaces are preserved. No erosions are identified. Minute marginal osteophytes are noted at the IP joint thumb. No fractures are noted. There is no soft tissue swelling. LEFT HAND: Joint spaces are preserved. No erosions are identified. Minute marginal osteophytes are noted at the IP joint thumb. No fractures are noted. There is no soft tissue swelling. 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 Electronically signed by: Brad Garcia MD 05/20/2025 11:22 AM EDT
--- OUTSIDE RECORDS SUMMARY | 2025-05-20 13:33 | XMS_ITS | Encounter Summary ---
Author Organization [facility] Address [address] [place] [address] [place] [address] Phone Care Team Providers Care Pellet Press Operator Name Role Phone Kenneth Jaeger MD Primary Care Provider [phone] Encounter Details Date Type Department Care Team (Late st Contact Info) Description 06/01/2020 Ancillary Orders [facility] [address] [facility], [address] [place] [address] Gloria Torres MD, [place] [address] [phone] [email or web address] Social History Tobacco Use Types Packs/Day Years [...] Office Visit [facility] [address] [place] [address] Angel Michel MD 800 [place] [address] [email or web address] 09/10/2025 3:00 PM EST Evaluation [facility] [address] [facility] [address] [place] [address] James Montaño AuD [address] [place] [address] [email or web address] documented as of this encounter Visit Diagnoses Not on filedocumented in this encounter Care Teams Pellet Press Operator Relationship Specialty Start Date End Date Po, Kenneth Taevras MD [address] [place] [phone] PCP - General Internal Medicine 05/27/20 documented as of this encounter Additional Source Comments The information contained in this document represents components of the legal health record. It is not the complete legal health record.[facility]
--- OUTSIDE RECORDS SUMMARY | 2025-05-20 13:33 | XMS_ITS | Encounter Summary ---
Author Organization [facility] Address [address] [facility] [address] [place] [address] Phone Care Team Providers Care Primer Waterproofing Machine Operator Name Role Phone Kenneth Jaeger MD Primary Care Provider [phone] Encounter Details Date Type Department Care Team (Late st Contact Info) Description 06/01/2020 Ancillary Orders [facility] [address] [place] [address] Gloria Torres MD, [place] [address] [facility] [address] [place] [phone] [email or web address] Abnormal mammogram Social History Tobacco Use Types [...] EST Office Visit [facility] [address] [place] [address] Angel Michel MD [address] [place] [address] [email or web address] 09/10/2025 3:00 PM EST Evaluation [facility] [address] [address] James Montaño AuD [address] [place] [address] [email or web address] documented as of this encounter Results * Mammogram Outside With Interpretation Or Consult (06/01/2020 3:07 PM EST) 06/01/2020 Impressions [facility] - 06/02/2020 6:31 PM EST There is a mass measuring up to 7 mm in the retroareolar region of the right breast, which corresponds to biopsy-proven atypical ductal proliferation . Surgical consultation is recommended for atypia. No mammographic evidence of malignancy within the left breast. BI-RADS Category 2: Benign Finding Narrative [facility] - 06/02/2020 6:31 PM EST OUTSIDE INTERPRETATION [...] (05/14/2020): Please note that ultrasound is an oven operator automatic-dependent real time examination, so evaluation of the [...] position on the post-biopsy mammogram. PATHOLOGY (per [facility] report dated 05/26/2020): [...] Ultrasound (05/14/2020): Please note that ultrasound isan oven operator automatic-dependent real time examination, so evaluation of the [...] position on the post-biopsy mammogram. PATHOLOGY (per [facility] report dated107/26/2019): Pathology [...] OUTSIDE IMAG ING W/ INTERPRETATION Final Result [facility] [address] [place] [address] documented in this encounter Visit Diagnoses Diagnosis Abnormal mammogram Abnormal mammogram, unspecified Abnormal mammogram Abnormal mammogram, unspecified documented in this encounter Care Teams Primer Waterproofing Machine Operator Relationship Specialty Start Date End Date Mil, Kenneth Taveras MD [address] [place] [address] PCP - General Internal Medicine 05/27/20 documented as of this encounter Additional Source Comments The information contained in this document represents components of the legal health record. It is not the complete legal health record.[facility]
--- OUTSIDE RECORDS SUMMARY | 2025-05-20 13:33 | XMS_ITS | Encounter Summary ---
Author Organization [facility] Address [address] [place] [phone] Phone Care Team Providers Care Supervisor Cell Room Name Role Phone Kenneth Jaeger MD Primary Care Provider Encounter Details Date Type Department Care Team (Late Contact Info) Description 06/29/[address] [facility] PERIOPERATIVE DEPT [address] [place] [phone] Social History Tobacco Use Types Packs/Day Years [...] EST Office Visit [facility] [address] [place] [address] Angel Michel MD [address] [place] [address] [email or web address] 09/10/2025 3:00 PM EST Evaluation [facility] at [address] [place] [address] James Montaño, Domo [address] [place] [address] [email or web address] documented as of this encounter Visit Diagnoses Not on filedocumented in this encounter Care Teams Supervisor Cell Room Relationship Specialty Start Date End Date Kenneth Jaeger MD [address] [place] [address] [place] [phone] PCP - General Internal Medicine 05/27/20 documented as of this encounter Additional Source Comments The information contained in this document represents components of the legal health record. It is not the complete legal health record.[facility]
--- OUTSIDE RECORDS SUMMARY | 2025-05-20 13:33 | XMS_ITS | Encounter Summary ---
Author Organization [facility] Address [address] [place] [address] Phone Care Team Providers Care Social Worker Palliative Care Name Role Phone Kenneth Jaeger MD Primary Care Provider [phone] Encounter Details Date Type Department Care Team (Late st Contact Info) Description 02/04/2022 Procedure Pass [facility] [address] [facility] [address] [place] [address] Social History Tobacco Use Types Packs/Day Years [...] Office Visit [facility] [address] [place] [address] Angel Michel MD [address] [place] [address] [email or web address] 09/10/2025 3:00 PM EST Evaluation [facility] at [address] [place] [address] James Montaño, AuD [address] [place] [address] [email or web address] documented as of this encounter Visit Diagnoses Not on filedocumented in this encounter Care Teams Social Worker Palliative Care Relationship Specialty Start Date End Date Kenneth Jaeger MD [address] [place] [address] [address] [place] [phone] PCP - General Internal Medicine 05/27/20 documented as of this encounter Additional Source Comments The information contained in this document represents components of the legal health record. It is not the complete legal health record.[facility]
--- OUTSIDE RECORDS SUMMARY | 2025-05-20 13:33 | XMS_ITS | Encounter Summary ---
Author Organization [facility] Address [address] [place] [address] Phone Care Team Providers Care Furniture Restorer Name Role Phone Kenneth Jaeger MD Primary Care Provider [phone] Encounter Details Date Type Department Care Team (Late st Contact Info) Description 10/17/2022 Procedure Pass [facility] [place] [address] [place] [address], [address] [place] [address] Social History Tobacco Use Types Packs/Day Years [...] Office Visit [facility] [address] [place] [address] Angel Michel MD [address] [place] [address] [email or web address] 09/10/2025 3:00 PM EST Evaluation [facility] at [address] [address] James Montaño, AuD [address] [place] [address] [email or web address] documented as of this encounter Visit Diagnoses Not on filedocumented in this encounter Care Teams Furniture Restorer Relationship Specialty Start Date End Date Kenneth Jaeger MD [address] [place] [address] [address] [place] [phone] PCP - General Internal Medicine 05/27/20 documented as of this encounter Additional Source Comments The information contained in this document represents components of the legal health record. It is not the complete legal health record.[facility]
--- OUTSIDE RECORDS SUMMARY | 2025-05-20 13:33 | XMS_ITS | Clinical Summary ---
Author Organization [facility] Address [address] [place] [address] Phone Care Team Providers Care Insight Leader Name Role Phone Kenneth Jaeger MD Primary Care Provider [phone] Allergies Active Allergy Reactions Criticality Noted Date Comments Creston 11/11/2021 Cat/Feline Products 11/11/2021 Cattle Epithelium Allergenic Extract 11/11/2021 Dog Dander 11/11/2021 House Dust Mite 11/11/2021 Feathers 11/11/2021 Grass Pollen 11/11/2021 Hazelnut 11/11/2021 Tree Nut 06/28/2020 Peanut 06/28/2020 Penicillins 03/22/2018 Soy 06/28/2020 Midpines Pollen-Short Ragweed 11/11/2021 Medications No known medications Active Problems Problem Noted Date Diagnosed Date Status post excisional biopsy 05/31/2023 Overview (05/31/2023): Right breast excision 06/29/2020, ADH and epithelial atypia involving fibroadenoma Atypical ductal hyperplasia, 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 Encounters Date Type Department Care Team Description 03/31/2025 2:00 PM EDT Office Visit [facility] [address] [address] Chencho Jones MD, [place] Skin lesion (Primary Dx) 03/25/2025 9:00 AM EDT Office Visit [facility] [address] [address] Montserrat Miramontes MD Neoplasm of uncertain behavior of skin (Primary Dx); Dermatofibroma; Scar; Subcutaneous nodule; Seborrheic keratoses; Callus; Dilated pore of Mariaelena 03/06/2025 Orders Only [facility] [address] [place] [address] Alycia Finley Tinnitus, unspecified laterality (Primary Dx) 02/23/[address] [facility] [address] [facility], [address] [place] [address] Margarito Thomas Visit for screening mammogram (Primary Dx) 02/20/2025 2:00 PM EDT Office Visit [facility] [address] [facility], [address] [place] [address] Soni Cueva CNP Atypical ductal hyperplasia of [...] Description 05/28/2025 1:30 PM EST Office Visit [facility] Otolaryngology General LW 800 [place] [address] Angel Michel MD 800 [place] [address] [email or web address] 09/10/2025 3:00 PM EST Evaluation [facility] at [facility] 243 [facility] 219 [place] [address] James Montaño AuD 243 [place] [address] [email or web address] Health Maintenance Due Date Last Done Comments [...] Results * Dermatopathology (03/31/2025 12:00 AM EDT) Final Diagnosis A. SKIN, LEFT FOREHEAD, SHAVE BIOPSY: Superficial component of trichofolliculoma. B. SKIN, MID BACK, SHAVE BIOPSY: Epidermal inclusion cyst. [facility] Clinical History A) Left forehead [favor trichofolliculoma vs. other] B) Mid back [favor cyst] [facility] Operation A) Shave biopsy B) Excision [facility] Clinical Diagnosis See Above [facility] Tissue Submitted A/1. Skin: Left forehead B/2. Skin: Mid back [facility] Gross Description The specimen is received in formalin, in [...] is sectioned revealing white sebaceous debris. A direct marketing representative section is submitted. The skin shave [...] rendered or confirmed the diagnosis(es) related thereto. [facility] Procedure Comments Proc(order for accession only, not for recut) H&E Stain - [facility] (order for accession only, not for recut) H&E Stain - [facility] Create a paraffin block - [facility] Create a paraffin block - [facility] (order for accession only, not for recut) H&E stain on level 1 slide - [facility] (order for accession only, not for recut) H&E stain on level 2 slide - [facility] PATH[facility] Report Accession No: [id number] Date: 1965 Sex: Female [facility] Department of Pathology [address] [place], [place] [address]IA License No.: [id number] Elementary Educator: Dr. Caleb Grant M.D., Ph.D. Physician: CHENCHO JONES MD, [place] Procedure Date: 03/31/2025 Pathologist: Isaias Perez MD [...] is sectioned revealing white sebaceous debris. A direct marketing representative section is submitted. The skin shave [...] on Monday April 07, 2025 at 10:48:49AM [facility] Conversion Type (Skin) 03/31/2025 04/01/2025 Conversion Type (Skin) 03/31/2025 04/01/2025 us Chenhco Jones MD, MS PATHOLOGY ORDERABLES Edited Re carlit - Final [facility] * BI MAMMOGRAM SCREENING WITH TOMOSYNTHESIS WITH [...] Most Recently Relevant to Health Maintenance Insurance [facility] PPO EPO [facility] PPO EPO PPO EPO PPO EPO PPO EPO [place] Member Subscriber Plan / Payer (Ef fective 2017-Present) Name:Jaden Mauricio Relation to Subscriber:Self Name:Jaden Mauricio Payer ID:[id number] (NAIC) Type:PPO Address: [address] [place] [id number] Care Teams Insight Leader Relationship Specialty Start Date End Date Kenneth Jaeger MD [address] [place] [address] [place] [phone] PCP - General Internal Medicine 05/27/20 Additional Source Comments The information contained in this document represents components of the legal health record. It is not the complete legal health record.[facility]
--- OUTSIDE RECORDS SUMMARY | 2025-05-20 13:33 | XMS_ITS | Encounter Summary ---
Author Organization [facility] Address [address] [place] [address] Phone Care Team Providers Care Internal Grinder Name Role Phone Kenneth Jaeger MD Primary Care Provider [phone] Encounter Details Date Type Department Care Team (Late st Contact Info) Description 10/16/2022 Procedure Pass [facility] [address] [facility] [address] [place] [address] Social History Tobacco Use Types Packs/Day Years [...] Office Visit [facility] LW 800 [place] [address] Angel Michel MD 800 [place] [address] [email or web address] 09/10/2025 3:00 PM EST Evaluation [facility] at [address] [place] [address] James Montaño, AuD 243 [place] [address] [email or web address] documented as of this encounter Visit Diagnoses Not on filedocumented in this encounter Care Teams Internal Grinder Relationship Specialty Start Date End Date Kenneth Jaeger MD [address] [place] [address] [address] [place] [address] PCP - General Internal Medicine 05/27/20 documented as of this encounter Additional Source Comments The information contained in this document represents components of the legal health record. It is not the complete legal health record.[facility]
--- OUTSIDE RECORDS SUMMARY | 2025-05-20 13:33 | XMS_ITS | Encounter Summary ---
Author Organization [facility] Address [address] [place] [address] Care Team Providers Care Occup Ther Name Role Phone Ed Tsang MD Primary Care Provider [phone] Encounter Details Date Type Department Care Team Description 04/21/2016 Program Evaluator Report Medical Records 4 [place] [address] Sarah Barreto MD Social History Tobacco Use Types Packs/Day Years Used Date Smoking Tobacco: Never Smokeless Tobacco: Never Alcohol Use Standard Drinks/Week Comments No 0 (1 standard drink = 0.6 oz pur e alcohol) wine 1/month Sex Assigned at Date Recorded Not on file documented as of this encounter Plan of Treatment Not on file documented as of this encounter Visit Diagnoses Not on filedocumented in this encounter Care Teams Occup Ther Relationship Specialty Start Date End Date Ed Tsang MD [address] [place], [place] [phone] PCP - General Internal Medicine 12/28/14 documented as of this encounter
--- OUTSIDE RECORDS SUMMARY | 2025-05-20 13:33 | XMS_ITS | Encounter Summary ---
Author Organization [facility] Address [address] [place] [address] Care Team Providers Care Bolt Man Name Role Phone Ed Tsang MD Primary Care Provider [phone] Encounter Details Date Type Department Care Team Description 08/16/2017 Loss Control Consultant Report Medical Records 4 [place] [address] Sarah Barreto MD Social History Tobacco Use [...] on filedocumented in this encounter Care Teams Bolt Man Relationship Specialty Start Date End Date Ed Tsang MD [address] [place], [place] [phone] PCP - General Internal Medicine 12/28/14 documented as of this encounter
--- OUTSIDE RECORDS SUMMARY | 2025-05-20 13:33 | XMS_ITS | Encounter Summary ---
Author Organization [facility] Address [address] [facility] [address] [place] [address] Phone Care Team Providers Care Honing Job Setter Name Role Phone Kenneth Jaeger MD Primary Care Provider [phone] Encounter Details Date Type Department Care Team (Late st Contact Info) Description 06/23/2020 Ancillary Orders [facility] [address] [facility], 9th Floor, [address] [place] [address] Miriam Mario MD [address] [place] [address] [email or web address] Atypical ductal hyperplasia of right [...] Office Visit [facility] General LW 800 [place] [address] Angel Michel MD 800 [place] [address] [email or web address] 09/10/2025 3:00 PM EST Evaluation [facility] [address] [address] James Montaño AuD 243 [place] [address] [email or web address] documented as of this [...] IRP GUIDED BREAST PROC Final Result * [facility] Breast Needle Localization (Right) (06/29/2020 8:55 AM [...] breast documented in this encounter Care Teams Honing Job Setter Relationship Specialty Start Date End Date Po, Kenneth Taveras MD [address] [place] [address] [place] [phone] PCP - General Internal Medicine 05/27/20 documented as of this encounter Additional Source Comments The information contained in this document represents components of the legal health record. It is not the complete legal health record.[facility]
--- OUTSIDE RECORDS SUMMARY | 2025-05-20 13:33 | XMS_ITS | Encounter Summary ---
Author Organization [facility] Address [address] [place] [address] Phone Care Team Providers Care Cost Accounting Clerk Name Role Phone Kenneth Jaeger MD Primary Care Provider [phone] Encounter Details Date Type Department Care Team (Late st Contact Info) Description 11/05/2020 Procedure Pass [facility], [place] [address] [place] [address], 2[address] [place] [address] Social History Tobacco Use Types Packs/Day Years [...] Office Visit [facility] General LW 800 [place] [address] Angel Michel MD 800 [place] [address] [email or web address] 09/10/2025 3:00 PM EST Evaluation [facility] at [address] [place] [address] James Montaño, AuD [address] [place] [address] [email or web address] documented as of this encounter Visit Diagnoses Not on filedocumented in this encounter Care Teams Cost Accounting Clerk Relationship Specialty Start Date End Date Kenneth Jaeger MD [address] [place] [address] [address] [place] [address] PCP - General Internal Medicine 05/27/20 documented as of this encounter Additional Source Comments The information contained in this document represents components of the legal health record. It is not the complete legal health record.[facility]
--- OUTSIDE RECORDS SUMMARY | 2025-05-20 13:33 | XMS_ITS | Encounter Summary ---
Author Organization [facility] Address [address] [place] [address] Phone Care Team Providers Care Sugar Plantation Manager Name Role Phone Kenneth Jaeger MD Primary Care Provider [phone] Encounter Details Date Type Department Care Team (Late st Contact Info) Description 11/05/2020 Procedure Pass [facility] Breast Evaluation Center [address] [facility] [address] [place] [address] Social History Tobacco Use Types Packs/Day Years [...] Office Visit [facility] General LW 800 [place] [address] Angel Michel MD 800 [place] [address] [email or web address] 09/10/2025 3:00 PM EST Evaluation [facility] at [address] [place] [address] James Montaño, AuD [address] [place] [address] [email or web address] documented as of this encounter Visit Diagnoses Not on filedocumented in this encounter Care Teams Sugar Plantation Manager Relationship Specialty Start Date End Date Kenneth Jaeger MD [address] [place] [address] [address] [place] [address] PCP - General Internal Medicine 05/27/20 documented as of this encounter Additional Source Comments The information contained in this document represents components of the legal health record. It is not the complete legal health record.[facility]
--- OUTSIDE RECORDS SUMMARY | 2025-05-20 13:33 | XMS_ITS | Clinical Summary ---
Author Organization 175 [facility] Address [address] [place] [address] Phone Care Team Providers Care Rv Detailer Name Role Phone Kenneth Jaeger MD Primary Care Provider [phone] Allergies Active Allergy Reactions Criticality Noted Date Comments Penicillins 01/18/2015 Reaction not mentioned Medications EPINEPHrine (EpiPen 2-Ivan) 0.3 mg/0.3 mL injection Inject as directed. 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, decreasing in size US 2015 IBS (irritable bowel syndrome) 05/12/2015 Anemia 01/20/2015 Glaucoma suspect 01/19/2015 Overview (07/18/2024): 2013/ was to be followed [facility] Vitamin D deficiency 01/18/2015 Encounters Date Type Department Care Team Description 04/13/2025 Telephone [facility]ology - [place] 175 [facility] 175 [facility] 200 [place] [address] Naya Condon MD 04/09/2025 Telephone Gastroenterology - 299 [facility] 299 [facility] [address] [place] [address] Frederick Koehler MD from Last 3 Months Immunizations Immunization Administration Dates Next Due Tdap Tetanus diptheria acell ular pertussis (Boostrix; Adacel) 7yo and older 05/12/2015 Surgical History Surgery Date Site/Laterality Comments SECTION 1995 and 2011 PROCEDURE: HISTORICAL DELIVERY OTHER SURGICAL HISTORY 11/16/12 PROCEDURE: MAMMOGRAM OTHER SURGICAL HISTORY 07/31/2011 PROCEDURE: OUTSIDE PAP SMEAR UPPER GASTROINTESTINAL ENDOSCOPY 05/18/2015 PROCEDURE: DE UPPER GI ENDOSCOPY PERFORMED; COMMENT: Visually normal; duodenal bx: normal. COLONOSCOPY 05/18/2015 PROCEDURE: HISTORICAL COLONOSCOPY; COMMENT: Visually normal; random bx: normal. Medical History Medical History Date Comments Vitamin D deficiency 01/18/2015 DX:Vitamin D deficiency Polyneuropathy 01/19/2015 DX:Polyneuropath y Glaucoma suspect 01/19/2015 DX:Glaucoma ronnie pect; COMMENT: 2012/ was to be followed [facility] History of thyroid nodule 01/20/2015 DX:His tory of thyroid nodule; COMMENT: Noted 2010 left/ needle aspiration/ benign Not seen on US 2012 History of hepatitis 01/20/2015 DX:History of hepatitis; COMMENT: Per transfer note age 16 Anemia 01/20/2015 DX:Anemia IBS (irritable bowel syndrome) 05/12/2015 D X:IBS (irritable bowel syndrome) Left kidney mass 11/23/2015 DX:Left kidney mass; COMMENT: 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, decreasing in size US 2016 Family History Medical History Relation Name Comments [...] on file Obstetrics History Plan of Treatment Upcoming Encounters Date Type Department Care Team (Late st Contact Info) Description 06/08/2025 3:30 PM EST Appointment [facility] Endoscopy [address] [place] [address] Corbin Israel DO [address] [place] [phone] Health Maintenance Due Date Last Done Comments Pneumococcal Vaccine: 50+ Years (1 of 1 [...] Colorectal Cancer Screening: Colonoscopy 05/18/2025 05/18/2015, 05/18/2015 Breast Cancer Screening 08/23/2026 08/23/2024 RSV Immunization Adult Patients (1 - 1-dose [...] on patient's age to complete this topic Goals Goal Patient Goal Type Associated Problems Recent Progress Patient-Stated? Author Autogenera santiago Goal Care Plan Autogenerated Problem No Brunilda Brown Procedures Procedure Name Priority Date/Time Associated Diagnosis Comments COLONOSCOPY Routine 05/18/2015 PAP SMEAR Routine 07/31/2011 HEPATITIS C SCREENING Routine 01/17/2008 from Last 3 Months or Most Recently Relevant to Health Maintenance Results * Colonoscopy (05/18/2015) Colonoscopy no interpretation , abstracted Anatomical Region Laterality Modality Other Historical Provider HEALTH MAINTENANCE Final Result * Pap Smear (07/31/2011) Pap smear no interpretation , abstracted [facility] Provider HEALTH MAINTENANCE Final Result * Hepatitis C Screening (01/17/2008) Hepatitis C Screening abstracted [facility] Provider HEALTH MAINTENANCE Final Result from Last 3 Months or Most Recently Relevant to Health Maintenance Additional Health Concerns Active Problems Noted Date Diagnosed Date Autogenerated Problem 04/21/2025 Insurance Care Teams Rv Detailer Relationship Specialty Start Date End Date Kenneth Jaeger MD [address] [place] [address] Dr [address] [facility] [place] [address] PCP - General Internal Medicine 04/13/25
--- OUTSIDE RECORDS SUMMARY | 2025-05-20 13:33 | XMS_ITS | Encounter Summary ---
Author Organization [facility] Address [address] [place] [address] Care Team Providers Care Public Relations Supervisor Name Role Phone Ed Tsang MD Primary Care Provider [phone] Encounter Details Date Type Department Care Team Description 06/18/2017 Orders Only Adult Medicine [address] [phone] Arianna Ambriz NP Social History Tobacco Use Types Packs/Day Years [...] on filedocumented in this encounter Care Teams Public Relations Supervisor Relationship Specialty Start Date End Date Ed Tsang MD [address] [place] [phone] PCP - General Internal Medicine 12/28/14 documented as of this encounter
--- OUTSIDE RECORDS SUMMARY | 2025-05-20 13:34 | XMS_ITS | Encounter Summary ---
Author Organization [facility] Address [address] [place] [address] Phone Care Team Providers Care Filtration Operator Name Role Phone Kenneth Jaeger MD Primary Care Provider [phone] Encounter Details Date Type Department Care Team (Late st Contact Info) Description 04/23/2024 Procedure Pass [facility] Breast Evaluation Center [address] [facility] [address] [place] [address] Social History Tobacco Use Types Packs/Day Years [...] Office Visit [facility] General LW [address] [place] [address] Angel Michel MD [address] [place] [address] [email or web address] 09/10/2025 3:00 PM EST Evaluation [facility] 243 [facility] 219 [place] [address] James Montaño AuD [address] [place] [address] [email or web address] documented as of this encounter Visit Diagnoses Not on filedocumented in this encounter Care Teams Filtration Operator Relationship Specialty Start Date End Date Kenneth Jaeger MD [address] [place] [address] [place] [phone] PCP - General Internal Medicine 05/27/20 documented as of this encounter Additional Source Comments The information contained in this document represents components of the legal health record. It is not the complete legal health record.[facility]
--- OUTSIDE RECORDS SUMMARY | 2025-05-20 13:34 | XMS_ITS | Encounter Summary ---
Author Organization [facility] Address [address] [place] [address] Phone Care Team Providers Care Director Skills Name Role Phone Kenneth Jaeger MD Primary Care Provider [phone] Encounter Details Date Type Department Care Team (Late st Contact Info) Description 05/31/2023 Procedure Pass [facility] [place] [address] [facility], 2nd [place] [address] Social History Tobacco Use Types Packs/Day Years [...] Office Visit [facility] General LW [address] [place] [address] Angel Michel MD 800 [place] [address] [email or web address] 09/10/2025 3:00 PM EST Evaluation [facility] Tinnitus Clinic at [facility] [address] [place] [address] [place] [address] James Montaño AuD [address] [place] [address] [email or web address] documented as of this encounter Visit Diagnoses Not on filedocumented in this encounter Care Teams Director Skills Relationship Specialty Start Date End Date Kenneth Jaeger MD [address] [place] [address] [place] [phone] PCP - General Internal Medicine 05/27/20 documented as of this encounter Additional Source Comments The information contained in this document represents components of the legal health record. It is not the complete legal health record.[facility]
--- OUTSIDE RECORDS SUMMARY | 2025-05-20 13:34 | XMS_ITS | Encounter Summary ---
Author Organization [facility] Address [address] [facility] [address] [place] [address] Phone Care Team Providers Care Warehouse Manager Name Role Phone Kenneth Jaeger MD Primary Care Provider [phone] Encounter Details Date Type Department Care Team (Late st Contact Info) Description 04/23/2024 Ancillary Orders [facility] Department [address] Supervisor [address] [place] [address] Kenneth Jaeger MD [address] [place] [phone] Healthcare maintenance (Primary Dx) Social History Tobacco [...] Description 05/28/2025 1:30 PM EST Office Visit [facility] Otolaryngology General LW [address] [place] [address] Angel Michel MD [address] [place] [address] [email or web address] 09/10/2025 3:00 PM EST Evaluation [facility] T[facility]itus Clinic at [facility] 243 [facility] Room [address] [place] [address] James Montaño AuD [address] [place] [address] [email or web address] documented as of this encounter Results * [...] maintenance documented in this encounter Care Teams Warehouse Manager Relationship Specialty Start Date End Date Kenneth Jaeger MD [address] [place] [address] Drive [address] [place] [address] PCP - General Internal Medicine 05/27/20 documented as of this encounter Additional Source Comments The information contained in this document represents components of the legal health record. It is not the complete legal health record.[facility]
== END 2025-05-20 10:05 | disposition home or self-care (01) ==
LOC: HO.XRAY 10:04
PROVIDERS: PCP Internal Medicine; Visit Provider Internal Medicine
DX: E66.3 Overweight (principal); E78.00 Pure hypercholesterolemia, unspecified; R73.02 Impaired glucose tolerance (oral); K76.0 Fatty (change of) liver, not elsewhere classified; N28.89 Other specified disorders of kidney and ureter; N60.91 Unspecified benign mammary dysplasia of right breast; M79.646 Pain in unspecified finger(s); H93.19 Tinnitus, unspecified ear; R06.83 Snoring; R79.89 Other specified abnormal findings of blood chemistry; Z68.26 Body mass index [BMI] 26.0-26.9, adult
CPT/HCPCS: 73120; 96127

== ENCOUNTER → 2025-05-20 10:54 | Outpatient (BNV) | payer BC, SELFPAY | PROVIDERS: PCP Internal Medicine; Visit Provider Radiology Diagnostic Radiology | DX: M79.641 Pain in right hand (principal); M79.642 Pain in left hand | CPT/HCPCS: 73120 ==